=== PATIENT | male | born 1985 | race Caucasian/White ===

== ENCOUNTER 2018-07-08 14:39 | Observation (INO) | payer MEDICAID, SELFPAY ==
[2018-07-08] VITALS (11 sets, daily range): BP systolic 151–181; BP diastolic 84–97; PULSE 66–91; RESP 14–18; TEMP 36.7; O2SAT 96–99; BMI 36.4; BMI 36.1
--- NOTE | 2018-07-08 14:45 | EKG12_ITS ---
Test Reason : CP Blood Pressure : / mmHG Vent. Rate : 090 BPM Atrial Rate : 090 BPM P-R Int : 116 ms QRS Dur : 100 ms QT Int : 382 ms P-R-T Axes : 062 016 070 degrees QTc Int : 467 ms Normal sinus rhythm Possible Inbvi-Gmztbwyzo-Zaglm Possible old inferior wall NV Confirmed by DAVID ACOSTA ([id number]), assistant film editor SOILA MARTINES ([id number]) on 07/13/2018 2:14:49 PM Referred By: DARREL Confirmed By:DAVID ACOSTA
--- NOTE | 2018-07-08 15:00 | RAD_ITS ---
STUDY: X-RAY CHEST REASON FOR EXAM: Male, 33 years old. Chest pain TECHNIQUE: Single AP portable view of the chest. COMPARISON: None. FINDINGS: The lungs are clear and expanded. There is no demonstrated pleural abnormality. Normal size heart. Normal mediastinum and inga. Normal visualized pulmonary arteries. Normal visualized aortic arch and descending thoracic aorta. Normal visualized thoracic spine. Normal visualized ribs, clavicles, and shoulders. There is no demonstrated abnormality of the visualized soft tissue structures of the upper abdomen. RAD/Chest 1 View (Portable) IMPRESSION: Normal x-ray examination of the chest. Electronically Signed: Maxim Eden, at 16:03 EDT Tel , Service support ,
[2018-07-08 15:09] LABS: Absolute Lymphocyte Count 2.34 X10^3/ul (0.83-4.51); Absolute Neutrophil Count 7.9 X10^3/uL (2.0-7.7); Basophil# 0.06 X10^3/uL; Basophil% 0.5 % (0-1); Eosinophils% 0.9 % (0-5); Hematocrit 43.5 % (40-54); Hemoglobin 14.7 g/dl (13.0-16.5); Lymphocyte # 2.34 X10^3/ul (4.0); Mean Corp Hgb Conc 33.8 g/gl (32-36); Mean Corpuscular Hgb 28.2 pg (27.0-32.0); Mean Corpuscular Volume 83.3 fL (80-94); Mean Platelet Vol. 10.9 fl (6.2-12.0); Monocyte# 0.67 X10^3/uL; Neutrophil # 7.87 X10^3/uL (2.7-7.7); Neutrophil % 70.7 % (47-70); POSITIVE COUNT NO; POSITIVE DIFFERENTIAL NO; POSITIVE MORPHOLOGY NO; Platelet Count 238 K/mm3 (150-450); RBC Distribution Width CV 14.1 % (11.6-14.6); RBC Distribution Width SD 42.5 fl (35.1-43.9); Red Blood Count 5.22 M/mm3 (4.6-6.2); White Blood Count 11.1 K/mm3 (4.4-11.0)
[2018-07-08 15:26] LABS: Anion Gap 6 (5-15); BUN 16 mg/dL (7-18); BUN/Creat Ratio 15.2 RATIO (10-20); Calcium,Total 8.6 mg/dL (8.5-10.1); Chloride 107 mmol/L (98-107); Creatinine, Serum 1.05 mg/dL (0.70-1.30); EST Glomerular Filtration Rate 85 mL/min (>60); Est Glom Filt Rate - Afr Amer 103 mL/min (>60); Estimated Creatinine Clearance 107.78 ml/min; Glucose 157 mg/dL (74-106); Potassium 3.8 mmol/L (3.5-5.1); Sodium Level 137 mmol/L (136-145)
--- NOTE | 2018-07-08 15:31 | ED.DCSUM_ITS ---
- ER Visit Summary Date of Service: 07/08/18 Chief Complaint: Chest pain History of Present Illness: The patient is a 33 M presenting with chest pain. Patient states this started approximately 1 hour ago. He had 30 minutes of midsternal stabbing chest pain. He states it was 8 out of 10. Pain is currentl y resolved. He does not recall anything that made this better or worse. He had associated shortness of breath, diaphoresis, lightheadedness. He denies palpitations or heart racing. He is a previous smoker. He did travel to [facility] a few weeks ago. No other PE/DVT risk factors. Physical Examination: Vitals are stable. Patient is afebrile. Alert no acute distress. HEENT exam is unremarkable. Neck is supple. Lungs are clear and equal bilaterally. Heart is regular rate and rhythm. Abdomen is soft nontender nondistended. Extremities are unremarkable. Skin is warm and dry. No focal neurologic deficit. Remainder of exam is unremarkable. Emergency Department Course and Treatment: EKG sinus rhythm rate of 90 with delta wave. Chest x-ray shows no acute process. CBC, chemistries unremarkable. Troponin is negative. D-dimer negative. He was given aspirin on arrival. He is pain-free in the emergency department. Discussed with Dr. Kendrick who recommends admission for cardiac rule out. Discussed with Dr. Anthony for admission. Disposition: Observation Impression: Chest pain This note was generated with [email or web address] dictation software. It may contain incorrect words, spelling, and punctuation that were not noted in review of the chart prior to signing ED Disposition - Plan for ED Patient: Referrals: Care Physician,No Primary [Primary Care Provider] -
[2018-07-08 15:54] LABS: D-Dimer Quantitative (DVT/PE) < 0.27 FEU/ug/m (0.27-0.49)
--- NOTE | 2018-07-08 17:02 | PCM.HP.STD ---
<Femi Nicholson - Last Filed: 07/08/18 17:02> Problem List (1) Chest pain Status: Acute (2) WPW (Nfhze-Lfneqsbht-Netwa syndrome) Status: Chronic (3) Nicotine abuse Status: Chronic (4) Obesity Status: Chronic (5) Anxiety Status: Chronic History of Present Illness Date of Admission: 07/08/18 Chief Complaint: chest pain The patient is a 33 year old M with pmhx of anxiety, obesity, nicotine abuse, asthma, who presents to the ER with chest pain. This began about 1350 today. He was walking and talking, and suddenly had onset of severe midsternal, lower left, chest pain described as stabbing. He had associated pain described as heaviness in between his shoulder blades. He also broke out in a heavy sweat all over, and became LH. No nausea, no radiation in the neck or arm. He has no hx heart dz. He denies a fm hx of heart dz. He quit smoking 2 months ago, smoked off an on for 20 years. He does, however continue to smoke marijuana sometimes daily. Pain did last for about a half hour before spontaneously subsiding. Currently no pain. EKG shows WPW. [] Past Medical History Past Medical History (Chronic Problems): Chronic Problems WPW (Whajp-Isvreccgm-Inmpk syndrome) (Chronic) Nicotine abuse (Chronic) Obesity (Chronic) Anxiety (Chronic) Allergies morphine Allergy (Verified 07/08/18 14:42) Hives Home Medications: Ambulatory Orders Medication Instructions Recorded Albuterol Inhaler [Ventolin Hfa] 1 - 2 puff INHALATION Q4H PRN PRN 06/13/13 Fluticasone 0.05% [Flonase Nasal 2 spray NASAL DAILY 07/08/18 [place]] Psychiatric History: Anxiety Lives: Spouse/ Significant Other Smoking Status: Former smoker Tobacco Use: Non-smoker Alcohol: Occasional Drugs: Marijuana - *Family History Maternal History Items: Cancer - colon Paternal History Items: No pertinent history Review of Systems Constitutional: Denies: Chills, Fever, Weight Change HEENT: Denies: Head Aches, Sinus Congestion, Sinus Drainage Cardiovascular: Reports: Chest Pain, Light Headedness. Denies: Edema, Heaviness, Palpitations, Paroxysmal Noc. Dyspnea, Syncope Respiratory: Denies: Cough, Shortness of Breath, Shortness of breath at rest, Shortness of breath upon exertion, Sputum production, Wheezing Gastrointestinal: Denies: Abdominal Pain, Nausea, Vomiting Genitourinary: Denies: Dysuria Musculoskeletal: Denies: Joint Pain, Joint Tenderness Skin: Denies: Rash, Wounds Neurological: Denies: Numbness, Tingling, Focal weakness Psychiatric: Denies: Anxiety, Depression, Homicidal Ideations, Suicidal Ideations Hematologic/ Lymphatic: Denies: Easy Bruising, Easy Bleeding VTE Information - Inpt Only VTE Present on Admission: No VTE Mechan Device Prophylaxis: None VTE Pharm Prophylaxis ordered?: Yes Patient Problems: Active and Suspected Problems Chest pain (Acute) - Physical Exam General: Alert, Oriented x3, Cooperative HEENT: Atraumatic, PERRLA, EOMI, Normocephalic Neck: Supple, No JVD, Negative Carotid Bruits Lungs: Clear to auscultation, Normal air movement Cardiovascular: Regular rate, No murmurs Abdomen: Bowel Sounds Present, Soft, Non Tender Extremities: No edema, Capillary Refill Less than 3 Seconds Skin: No rashes, No breakdown Musculoskeletal: No Tenderness to Palpation of Joints or Extremities Neurological: Cranial nerves II-XII grossly intact Psych/Mental Status: Normal Affect, Appropriate, Alert and oriented to time, place, person, mood and affect Vital Signs Temp Pulse Resp BP Pulse Ox 98.1 F 81 17 159/88 H 97 07/08/18 14:40 07/08/18 15:53 07/08/18 15:53 07/08/18 15:53 07/08/18 14:40 Oxygen Flow Rate (L/min) 2 Oxygen Delivery Method Nasal Cannula Weight: 268 lb 15.423 oz Body Mass Index (BMI) 36.4 Laboratory Tests Past 24 Hrs 07/08/18 07/08/18 07/08/18 15:00 15:00 15:10 WBC 11.1 H RBC 5.22 Hgb 14.7 Hct 43.5 MCV 83.3 MCH 28.2 MCHC 33.8 RDW 14.1 RDW Differential 42.5 Plt Count 238 MPV 10.9 Immature Gran % (Auto) 0.900 Neut % (Auto) 70.7 H Lymph % (Auto) 21.0 [place] % (Auto) 6.0 Eos % (Auto) 0.9 Baso % (Auto) 0.5 Absolute Neuts (auto) 7.9 H Absolute Lymphs (auto) 2.34 Total Counted Not Reportable D-Dimer Quant (PE/DVT) < 0.27 L Sodium 137 Potassium 3.8 Chloride 107 Carbon Dioxide 24.0 Anion Gap 6 BUN 16 Creatinine 1.05 Estim Creat Clear Calc 107.78 Est GFR (MDRD) Af Amer 103 Est GFR (MDRD) Non-Af 85 BUN/Creatinine Ratio 15.2 Glucose 157 H Calcium 8.6 Troponin I < 0.015 Assessment/Plan All Active Problems Chest pain (Acute) 1. Chest pain - EKG shows WPW, delta waves preset. Trop neg. D Dimer neg. Mildly htn in ER. cycle enzymes, repeat EKG in AM. maintain on tele. Treadmill stress test in AM. Start aspirin, FLP in AM. 2. Anxiety - states he has hx, but is not on medication for this 3. Asthma - no acute exacerbation. CXR neg. Lungs clear. No increased O2 demand. prn albuterol 4. Obesity - dietary eval 5. Nicotine abuse - quit 2 months ago 6. Marijuana abuse - despite quitting nicotine, he still smokes marijuana sometimes daily. DVT ppx: lovenox This patient was seen by Femi Nicholson PA-C under the supervision of Dr. Anthony <Carrillo Anthony - Last Filed: 07/08/18 18:09> History of Present Illness The patient is a 33 year old M [] Past Medical History Allergies morphine Allergy (Verified 07/08/18 14:42) Hives - Physical Exam Vital Signs Temp Pulse Resp BP Pulse Ox 98.1 F 85 16 181/97 H 98 07/08/18 17:28 07/08/18 17:28 07/08/18 17:28 07/08/18 17:28 07/08/18 17:33 Oxygen Flow Rate (L/min) 2 Oxygen Delivery Method Room Air Weight: 266 lb Body Mass Index (BMI) 36.1 Intake and Output for Last 24 Hours 07/06/18 07/07/18 07/08/18 23:59 23:59 23:59 Intake Total 200 / 200 Balance 200 / 200 Laboratory Tests Past 24 Hrs 07/08/18 07/08/18 07/08/18 15:00 15:00 15:10 WBC 11.1 H RBC 5.22 Hgb 14.7 Hct 43.5 MCV 83.3 MCH 28.2 MCHC 33.8 RDW 14.1 RDW Differential 42.5 Plt Count 238 MPV 10.9 Immature Gran % (Auto) 0.900 Neut % (Auto) 70.7 H Lymph % (Auto) 21.0 [place] % (Auto) 6.0 Eos % (Auto) 0.9 Baso % (Auto) 0.5 Absolute Neuts (auto) 7.9 H Absolute Lymphs (auto) 2.34 Total Counted Not Reportable D-Dimer Quant (PE/DVT) < 0.27 L Sodium 137 Potassium 3.8 Chloride 107 Carbon Dioxide 24.0 Anion Gap 6 BUN 16 Creatinine 1.05 Estim Creat Clear Calc 107.78 Est GFR (MDRD) Af Amer 103 Est GFR (MDRD) Non-Af 85 BUN/Creatinine Ratio 15.2 Glucose 157 H Calcium 8.6 Troponin I < 0.015 Assessment/Plan Hospitalist note: I am seeing this patient in conjunction with Femi Nicholson. I independently seen and examined the patient. History and physical, laboratory data and imaging studies reviewed and I agree with above admission and work-up plan. Patient presented to the emergency room because of chest pain that was started after he had a discussion with somebody about a heated subject. He started having chest pain, midsternal chest pain, sharp pain, 8 out of 10 in severity, goes straight to his back, associated with shortness of breath, dizziness and sweating and without aggravating or relieving factors. At this time, he mentioned that the pain is much better and almost gone. Apart from smoking, he denies any other risk factors for CAD. He denied family history of premature CAD. In the emergency department, his blood pressure was elevated, other vital signs were stable. His routine blood work was remarkable for glucose of 157, otherwise normal. D-dimer was normal. EKG revealed normal sinus rhythm without evidence of acute ischemic changes, revealed questionable delta wave on lead V3 and V4 concerning for possible Lghan-Jqcddfqlx-Pglsn syndrome. Troponin is negative. Chest x-ray showed no acute findings. He is being admitted for chest pain for evaluation. - Physical Exam General: Alert, Oriented x3, Cooperative, No apparent distress. HEENT: Atraumatic, PERRLA, EOMI. Neck: Supple, No JVD, Negative Carotid Bruits, Trachea Midline, Thyroid Normal. Lungs: Clear to auscultation, Normal air movement, No rhonchi, No wheeze, No rales. Cardiovascular: Regular rate, Regular Rhythm, Normal S1, Normal S2, PMI Normal. Abdomen: Bowel Sounds Present, Soft, Non Tender, Non-Distended, No Hepato-splenomegaly. Extremities: No clubbing, No cyanosis, No edema Skin: No rashes, No breakdown Neurological: Neuro grossly intact Assessment and plan: #1 chest pain: On risk factors smoking, no family history of premature CAD. Patient mentioned that his blood pressure has been elevated recently. EKG reviewed as above. Troponin is negative. Chest x-ray without acute findings. Plan: Admit to PCU for observation, cardiac monitoring, serial cardiac enzymes, repeat EKG tomorrow morning, treadmill stress test tomorrow morning if cardiac enzymes are negative, fasting lipid profile. #2 elevated blood pressure, without history of hypertension but patient stated that his pressure has been high lately. Plan to monitor, start antihypertensive medications tomorrow if blood pressure remains above 160 systolic, IV hydralazine PRN. #3 questionable Ppczs-Vdrdgvlyv-Rabmh syndrome: EKG reviewed, revealed delta wave in lead V3, questionable on lead V4. Plan for cardiac consult as above. #4 hyperglycemia: Blood sugar is 157, no history of diabetes. Plan for Accu-Cheks, will check A1c. This note was generated with [employer] dictation software. It may contain incorrect words, spelling, and punctuation that were not noted in checking the note before signing. Code Visit OBSV E&M: 64262 Initial observation care L3
[2018-07-08] MEDS: Aspirin 325 MG Tablet PO (17:04)
--- NOTE | 2018-07-08 17:06 | HP.PCM_ITS ---
<Femi Nicholson - Last Filed: 07/08/18 17:02> Problem List (1) Chest pain Status: Acute (2) WPW (Oahgp-Tddkknrcd-Rpfgd syndrome) Status: Chronic (3) Nicotine abuse Status: Chronic (4) Obesity Status: Chronic (5) Anxiety Status: Chronic History of Present Illness Date of Admission: 07/08/18 Chief Complaint: chest pain The patient is a 33 year old M with pmhx of anxiety, obesity, nicotine abuse, asthma, who presents to the ER with chest pain. This began about 1350 today. He was walking and talking, and suddenly had onset of severe midsternal, lower left, chest pain described as stabbing. He had associated pain described as heaviness in between his shoulder blades. He also broke out in a heavy sweat all over, and became LH. No nausea, no radiation in the neck or arm. He has no hx heart dz. He denies a fm hx of heart dz. He quit smoking 2 months ago, smoked off an on for 20 years. He does, however continue to smoke marijuana sometimes daily. Pain did last for about a half hour before spontaneously subsiding. Currently no pain. EKG shows WPW. [] Past Medical History Past Medical History (Chronic Problems): Chronic Problems WPW (Inhvk-Jvqqvdaei-Wkcdw syndrome) (Chronic) Nicotine abuse (Chronic) Obesity (Chronic) Anxiety (Chronic) Allergies morphine Allergy (Verified 07/08/18 14:42) Hives Home Medications: Ambulatory Orders Medication Instructions Recorded Albuterol Inhaler [Ventolin Hfa] 1 - 2 puff INHALATION Q4H PRN PRN 06/13/13 Fluticasone 0.05% [Flonase Nasal 2 spray NASAL DAILY 07/08/18 [place]] Psychiatric History: Anxiety Lives: Spouse/ Significant Other Smoking Status: Former smoker Tobacco Use: Non-smoker Alcohol: Occasional Drugs: Marijuana - *Family History Maternal History Items: Cancer - colon Paternal History Items: No pertinent history Review of Systems Constitutional: Denies: Chills, Fever, Weight Change HEENT: Denies: Head Aches, Sinus Congestion, Sinus Drainage Cardiovascular: Reports: Chest Pain, Light Headedness. Denies: Edema, Heaviness, Palpitations, Paroxysmal Noc. Dyspnea, Syncope Respiratory: Denies: Cough, Shortness of Breath, Shortness of breath at rest, Shortness of breath upon exertion, Sputum production, Wheezing Gastrointestinal: Denies: Abdominal Pain, Nausea, Vomiting Genitourinary: Denies: Dysuria Musculoskeletal: Denies: Joint Pain, Joint Tenderness Skin: Denies: Rash, Wounds Neurological: Denies: Numbness, Tingling, Focal weakness Psychiatric: Denies: Anxiety, Depression, Homicidal Ideations, Suicidal Ideations Hematologic/ Lymphatic: Denies: Easy Bruising, Easy Bleeding VTE Information - Inpt Only VTE Present on Admission: No VTE Mechan Device Prophylaxis: None VTE Pharm Prophylaxis ordered?: Yes Patient Problems: Active and Suspected Problems Chest pain (Acute) - Physical Exam General: Alert, Oriented x3, Cooperative HEENT: Atraumatic, PERRLA, EOMI, Normocephalic Neck: Supple, No JVD, Negative Carotid Bruits Lungs: Clear to auscultation, Normal air movement Cardiovascular: Regular rate, No murmurs Abdomen: Bowel Sounds Present, Soft, Non Tender Extremities: No edema, Capillary Refill Less than 3 Seconds Skin: No rashes, No breakdown Musculoskeletal: No Tenderness to Palpation of Joints or Extremities Neurological: Cranial nerves II-XII grossly intact Psych/Mental Status: Normal Affect, Appropriate, Alert and oriented to time, place, person, mood and affect Vital Signs Temp Pulse Resp BP Pulse Ox 98.1 F 81 17 159/88 H 97 07/08/18 14:40 07/08/18 15:53 07/08/18 15:53 07/08/18 15:53 07/08/18 14:40 Oxygen Flow Rate (L/min) 2 Oxygen Delivery Method Nasal Cannula Weight: 268 lb 15.423 oz Body Mass Index (BMI) 36.4 Laboratory Tests Past 24 Hrs 07/08/18 07/08/18 07/08/18 15:00 15:00 15:10 WBC 11.1 H RBC 5.22 Hgb 14.7 Hct 43.5 MCV 83.3 MCH 28.2 MCHC 33.8 RDW 14.1 RDW Differential 42.5 Plt Count 238 MPV 10.9 Immature Gran % (Auto) 0.900 Neut % (Auto) 70.7 H Lymph % (Auto) 21.0 [place] % (Auto) 6.0 Eos % (Auto) 0.9 Baso % (Auto) 0.5 Absolute Neuts (auto) 7.9 H Absolute Lymphs (auto) 2.34 Total Counted Not Reportable D-Dimer Quant (PE/DVT) < 0.27 L Sodium 137 Potassium 3.8 Chloride 107 Carbon Dioxide 24.0 Anion Gap 6 BUN 16 Creatinine 1.05 Estim Creat Clear Calc 107.78 Est GFR (MDRD) Af Amer 103 Est GFR (MDRD) Non-Af 85 BUN/Creatinine Ratio 15.2 Glucose 157 H Calcium 8.6 Troponin I < 0.015 Assessment/Plan All Active Problems Chest pain (Acute) 1. Chest pain - EKG shows WPW, delta waves preset. Trop neg. D Dimer neg. Mildly htn in ER. cycle enzymes, repeat EKG in AM. maintain on tele. Treadmill stress test in AM. Start aspirin, FLP in AM. 2. Anxiety - states he has hx, but is not on medication for this 3. Asthma - no acute exacerbation. CXR neg. Lungs clear. No increased O2 demand. prn albuterol 4. Obesity - dietary eval 5. Nicotine abuse - quit 2 months ago 6. Marijuana abuse - despite quitting nicotine, he still smokes marijuana sometimes daily. DVT ppx: lovenox This patient was seen by Femi Nicholson PA-C under the supervision of Dr. Anthony <Carrillo Anthony - Last Filed: 07/08/18 18:09> History of Present Illness The patient is a 33 year old M [] Past Medical History Allergies morphine Allergy (Verified 07/08/18 14:42) Hives - Physical Exam Vital Signs Temp Pulse Resp BP Pulse Ox 98.1 F 85 16 181/97 H 98 07/08/18 17:28 07/08/18 17:28 07/08/18 17:28 07/08/18 17:28 07/08/18 17:33 Oxygen Flow Rate (L/min) 2 Oxygen Delivery Method Room Air Weight: 266 lb Body Mass Index (BMI) 36.1 Intake and Output for Last 24 Hours 07/06/18 07/07/18 07/08/18 23:59 23:59 23:59 Intake Total 200 / 200 Balance 200 / 200 Laboratory Tests Past 24 Hrs 07/08/18 07/08/18 07/08/18 15:00 15:00 15:10 WBC 11.1 H RBC 5.22 Hgb 14.7 Hct 43.5 MCV 83.3 MCH 28.2 MCHC 33.8 RDW 14.1 RDW Differential 42.5 Plt Count 238 MPV 10.9 Immature Gran % (Auto) 0.900 Neut % (Auto) 70.7 H Lymph % (Auto) 21.0 [place] % (Auto) 6.0 Eos % (Auto) 0.9 Baso % (Auto) 0.5 Absolute Neuts (auto) 7.9 H Absolute Lymphs (auto) 2.34 Total Counted Not Reportable D-Dimer Quant (PE/DVT) < 0.27 L Sodium 137 Potassium 3.8 Chloride 107 Carbon Dioxide 24.0 Anion Gap 6 BUN 16 Creatinine 1.05 Estim Creat Clear Calc 107.78 Est GFR (MDRD) Af Amer 103 Est GFR (MDRD) Non-Af 85 BUN/Creatinine Ratio 15.2 Glucose 157 H Calcium 8.6 Troponin I < 0.015 Assessment/Plan Hospitalist note: I am seeing this patient in conjunction with Femi Nicholson. I independently seen and examined the patient. History and physical, laboratory data and imaging studies reviewed and I agree with above admission and work-up plan. Patient presented to the emergency room because of chest pain that was started after he had a discussion with somebody about a heated subject. He started having chest pain, midsternal chest pain, sharp pain, 8 out of 10 in severity, goes straight to his back, associated with shortness of breath, dizziness and sweating and without aggravating or relieving factors. At this time, he mentioned that the pain is much better and almost gone. Apart from smoking, he denies any other risk factors for CAD. He denied family history of premature CAD. In the emergency department, his blood pressure was elevated, other vital signs were stable. His routine blood work was remarkable for glucose of 157, otherwise normal. D-dimer was normal. EKG revealed normal sinus rhythm without evidence of acute ischemic changes, revealed questionable delta wave on lead V3 and V4 concerning for possible Grwll-Dekadkcre-Fcxut syndrome. Troponin is negative. Chest x-ray showed no acute findings. He is being admitted for chest pain for evaluation. - Physical Exam General: Alert, Oriented x3, Cooperative, No apparent distress. HEENT: Atraumatic, PERRLA, EOMI. Neck: Supple, No JVD, Negative Carotid Bruits, Trachea Midline, Thyroid Normal. Lungs: Clear to auscultation, Normal air movement, No rhonchi, No wheeze, No rales. Cardiovascular: Regular rate, Regular Rhythm, Normal S1, Normal S2, PMI Normal. Abdomen: Bowel Sounds Present, Soft, Non Tender, Non-Distended, No Hepato- splenomegaly. Extremities: No clubbing, No cyanosis, No edema Skin: No rashes, No breakdown Neurological: Neuro grossly intact Assessment and plan: #1 chest pain: On risk factors smoking, no family history of premature CAD. Patient mentioned that his blood pressure has been elevated recently. EKG reviewed as above. Troponin is negative. Chest x-ray without acute findings. Plan: Admit to PCU for observation, cardiac monitoring, serial cardiac enzymes, repeat EKG tomorrow morning, treadmill stress test tomorrow morning if cardiac enzymes are negative, fasting lipid profile. #2 elevated blood pressure, without history of hypertension but patient stated that his pressure has been high lately. Plan to monitor, start antihypertensive medications tomorrow if blood pressure remains above 160 systolic, IV hydralazine PRN. #3 questionable Vlkma-Uolozcxqg-Vqwzu syndrome: EKG reviewed, revealed delta wav e in lead V3, questionable on lead V4. Plan for cardiac consult as above. #4 hyperglycemia: Blood sugar is 157, no history of diabetes. Plan for Accu- Cheks, will check A1c. This note was generated with [employer] dictation software. It may contain incorrect words, spelling, and punctuation that were not noted in checking the note before signing. Code Visit OBSV E&M: 03272 Initial observation care L3
[2018-07-08] MEDS: 0.9% Normal Saline 1,000 ML 75 ML IV (18:39)
[2018-07-08 19:17] LABS: Hemoglobin A1c 5.7 % (4.2-6.3)
[2018-07-08 19:22] LABS: Thyroid Stim Hormone (TSH) 1.82 uIU/mL (0.358-3.74)
[2018-07-09] VITALS (9 sets, daily range): BP systolic 105–157; BP diastolic 58–92; PULSE 58–85; RESP 16–18; TEMP 36.2–37.2; O2SAT 96–98
[2018-07-09 05:45] LABS: Anion Gap 6 (5-15); BUN 17 mg/dL (7-18); BUN/Creat Ratio 19.7 RATIO (10-20); Calcium,Total 8.4 mg/dL (8.5-10.1); Chloride 109 mmol/L (98-107); Cholesterol 158 mg/dL (200); Creatinine, Serum 0.86 mg/dL (0.70-1.30); EST Glomerular Filtration Rate 107 mL/min (>60); Est Glom Filt Rate - Afr Amer 129 mL/min (>60); Estimated Creatinine Clearance 131.59 ml/min; Glucose 103 mg/dL (74-106); High Density Lipoprotein 37 mg/dL; Potassium 4.3 mmol/L (3.5-5.1); Sodium Level 141 mmol/L (136-145); Triglycerides 197 mg/dL; Very Low Density Lipoprotein 39 mg/dL (5-40)
[2018-07-09 05:46] LABS: Prothrombin Time (Protime)PT. 13.1 SECONDS (11.7-14.9)
[2018-07-09 05:47] LABS: Hematocrit 43.2 % (40-54); Hemoglobin 14.5 g/dl (13.0-16.5); Mean Corp Hgb Conc 33.6 g/gl (32-36); Mean Corpuscular Hgb 28.3 pg (27.0-32.0); Mean Corpuscular Volume 84.2 fL (80-94); Mean Platelet Vol. 11.4 fl (6.2-12.0); Partial Thromboplast Time 28.1 Seconds (24.1-36.2); Platelet Count 231 K/mm3 (150-450); RBC Distribution Width CV 14.2 % (11.6-14.6); RBC Distribution Width SD 43.3 fl (35.1-43.9); Red Blood Count 5.13 M/mm3 (4.6-6.2); White Blood Count 9.7 K/mm3 (4.4-11.0)
--- NOTE | 2018-07-09 05:55 | EKG12_ITS ---
Test Reason : MORNING EKG Blood Pressure : / mmHG Vent. Rate : 058 BPM Atrial Rate : 058 BPM P-R Int : 122 ms QRS Dur : 114 ms QT Int : 430 ms P-R-T Axes : 068 016 058 degrees QTc Int : 422 ms Sinus bradycardia Eahqa-Ozypqoupq-Ykgxt Abnormal ECG When compared with ECG of 08-JUL-2018 17:30, MANUAL COMPARISON REQUIRED, DATA IS UNCONFIRMED Confirmed by ANGEL SANTOS ([id number]), industrial editor SOILA MARTINES ([id number]) on 07/13/2018 2:23:27 PM Referred By: RAJAT Confirmed By:PAT SANTOS
[2018-07-09 05:59] LABS: Scan Indicated on CBC? Y/N NO
--- NOTE | 2018-07-09 09:40 | STRESSREP ---
Stress Test Report Date: July 09, 2018 Procedure: Exercise tolerance test/imaging study Indications: Chest pain Consent: Per the patient Procedure: The patient exercised on a Gavin protocol for 9 minutes achieving a peak heart rate of 169 bpm (91 % predicted maximal heart rate) with a peak blood pressure 172/80 mmHg and a peak MET capacity of 10.1 METs. The baseline ECG demonstrated normal sinus rhythm no significant ST-T changes. The peak exercise ECG demonstrated sinus tachycardia with 1/2 to [address] depression in the lateral leads. There were PVCs with exercise sometimes in couplets. The functional capacity was considered average for age. There was [no complaint of chest discomfort during exercise or recovery]. The examination was discontinued secondary to leg discomfort. Impression: 1. Technically adequate (percent predicted maximal heart rate greater than 85%) exercise tolerance test 2. Peak exercise ECG showed no definite evidence of significant ischemia 3. Test was negative for exercise induced chest pain 4. Nuclear images pending Myocardial perfusion imaging study: Technique: The patient was injected with 11.9 mCi of technetium 99m Cardiolite and subsequently rest SPECT Cardiolite nuclear imaging was obtained in the horizontal long, vertical long, and short axis views. The patient exercised on a Gavin protocol for 9 minutes achieving a peak heart rate of 169 bpm (91 % predicted maximal heart rate) with a peak blood pressure 172/80 mmHg and a peak MET capacity of 10.1 METs. The patient was injected with 34.4 mCi of technetium 99m Cardiolite and subsequently stress SPECT Cardiolite nuclear imaging was obtained in the horizontal long, vertical long, and short axis views. A gated Cardiolite study at peak stress was obtained. Interpretation: Rest and stress SPECT Cardiolite nuclear imaging status post realignment, normalization, and attenuation correction, demonstrates normal myocardial radioisotope uptake at rest. Mild decrease in the radioisotope uptake in the apex and inferoapical region on the stress images. Gated images reveal no significant regional wall motion abnormalities. The reported LVEF is greater than 70%. Impression: 1. Rest and stress SPECT Cardiolite nuclear imaging demonstrate mild apical ischemia. 2. The gated Cardiolite study reports an LVEF of greater than 70 %. This note was generated with [employer] software. It may contain incorrect words, spelling, and punctuation that were not noted in checking the note before signing.
--- NOTE | 2018-07-09 09:46 | PCM.CONS.C ---
<Fabio Nam - Last Filed: 07/09/18 09:46> Problem List (1) Chest pain Status: Acute (2) WPW (Kmqma-Mefghfqhx-Tzrjc syndrome) Status: Chronic (3) Nicotine abuse Status: Chronic (4) Obesity Status: Chronic (5) Anxiety Status: Chronic Reason for Consult Date of Consultation: 07/09/18 History of Present Illness: The patient is a 33 year old M who presented to [facility] emergency department on 07/08/2018 for chest pain associated with diaphoresis, shortness of breath, and dizziness. He has a previous medical history of hypertension, obesity, significant anxiety, and previous tobacco abuse. Patient states that he was in a high anxiety situation and pacing back and forth and noticed symptoms. He is states previous episodes approximately one half and 2 years ago that dissipated without evaluation or intervention. In the emergency department, his EKG showed controlled rate with delta waves consistent with Guevara Parkinson White. His troponin and d-dimer were negative. He was admitted to hospital for further evaluation. Cardiology was consulted for further recommendation. Past Medical History Allergies/Adverse Reactions: Allergies morphine Allergy (Verified 07/08/18 14:42) Hives Home Medications: Ambulatory Orders Medication Instructions Recorded Albuterol Inhaler [Ventolin Hfa] 1 - 2 puff INHALATION Q4H PRN PRN 06/13/13 Fluticasone 0.05% [Flonase Nasal 2 spray NASAL DAILY 07/08/18 [place]] Past Medical History (Chronic Problems): Chronic Problems WPW (Qrmkf-Sqmkadeel-Olufa syndrome) (Chronic) Nicotine abuse (Chronic) Obesity (Chronic) Anxiety (Chronic) Surgical History: - - Hernia Surgery Psychiatric History: Anxiety - *Family History Maternal Family History: Family History (Last Updated 07/09/18 @ 09:51 by BUCK Dowell) Grandmother Diabetes History Items: Cancer - colon Paternal Family History: Family History (Last Updated 07/09/18 @ 09:51 by BUCK Dowell) Grandmother Diabetes History Items: No pertinent history Lives: Spouse/ Significant Other Smoking Status: Former smoker Tobacco Use: Non-smoker Alcohol: Occasional Drugs: Marijuana Review of Systems - Review of Systems General: Denies: Fatigue HEENT: Denies: Vision Change, Blurred Vision Cardiovascular: Denies: Chest Discomfort, Chest Pressure, Chest Tightness, Chest Heaviness, Shortness of Breath, PND, Peripheral Edema, Palpitations, Lightheadedness, Dizziness, Near Syncope, Syncope Respiratory: Denies: Cough Muscoloskeletal: Denies: Myalgias Neurological: Denies: Dizziness, Confusion, Weakness Psychiatric: Reports: Anxiety Objective: Vital Signs Temp Pulse Resp BP Pulse Ox 97.9 F 65 18 135/86 H 96 07/09/18 06:27 07/09/18 06:27 07/09/18 06:27 07/09/18 06:27 07/09/18 06:27 Oxygen Flow Rate (L/min) 2 Oxygen Delivery Method Room Air Weight: 266 lb Body Mass Index (BMI) 36.1 Intake and Output for Last 24 Hours 07/07/18 07/08/18 07/09/18 23:59 23:59 23:59 Intake Total 866 / 866 460 / 460 Balance 866 / 866 460 / 460 General: Healthy Appearing, Awake, Alert, Oriented x 3 HEENT: Atraumatic Oral: Moist Mucosa Neck: No JVD Lungs: Clear to auscultation Cardiovascular: Regular Rhythm, No Murmurs, No Rubs, No Gallops Vascular: No Carotid Bruits Abdomen: Soft Extremities: No Cyanosis, No Clubbing, No edema, Normal Capillary Refill Skin: No Rashes Neurological: No Focal Motor or Sensory Deficit Psych/Mental Status: Appropriate, Normal Affect 07/08/18 15:00: WBC 11.1 H, RBC 5.22, Hgb 14.7, Hct 43.5, MCV 83.3, MCH 28.2, MCHC 33.8, RDW 14.1, RDW Differential 42.5, Plt Count 238, MPV 10.9, Immature Gran % (Auto) 0.900, Neut % (Auto) 70.7 H, Lymph % (Auto) 21.0, Labette % (Auto) 6.0, Eos % (Auto) 0.9, Baso % (Auto) 0.5, Absolute Neuts (auto) 7.9 H, Total Counted Not Reportable 07/08/18 15:00: Sodium 137, Potassium 3.8, Chloride 107, Carbon Dioxide 24.0, Anion Gap 6, BUN 16, Creatinine 1.05, Est GFR (MDRD) Af Amer 103, Est GFR (MDRD) Non-Af 85, BUN/Creatinine Ratio 15.2, Glucose 157 H, Calcium 8.6, Troponin I < 0.015 07/08/18 15:10: D-Dimer Quant (PE/DVT) < 0.27 L 07/08/18 18:42: Troponin I < 0.015 07/08/18 18:42: Hemoglobin A1c 5.7 07/08/18 20:51: Troponin I < 0.015 07/09/18 05:00: WBC 9.7, RBC 5.13, Hgb 14.5, Hct 43.2, MCV 84.2, MCH 28.3, MCHC 33.6, RDW 14.2, RDW Differential 43.3, Plt Count 231, MPV 11.4 07/09/18 05:00: Sodium 141, Potassium 4.3, Chloride 109 H, Carbon Dioxide 26.0, Anion Gap 6, BUN 17, Creatinine 0.86, Est GFR (MDRD) Af Amer 129, Est GFR (MDRD) Non-Af 107, BUN/Creatinine Ratio 19.7, Glucose 103, Calcium 8.4 L, Triglycerides 197, Cholesterol 158, LDL Cholesterol 82, VLDL Cholesterol 39, HDL Cholesterol 37 L 07/09/18 05:00: PT 13.1, INR 1.0, APTT 28.1 Rhythm: EKG: ECHO: Stress Test: Cardiac Cath: PCI: CT Surgery: Holter monitor: EPS: PPM: CXR: Chest CT Scan: Assessment/Plan 1. Chest pain Patient's chest pain appears to have atypical features. He denies any previous family history of coronary artery disease. His cardiac enzyme has been negative x3. His nuclear stress test results are currently pending. He denied any shortness of breath or chest pain during his stress test. Based on results of his stress test, further recommendation will be made. 2. Ewfzw-Wkdndgdfk-Uactv Patient's EKG showed delta waves consistent with Wyiiu-Fcsjlvxfh-Azubo. His EKG in the morning showed sinus bradycardia. His heart rate is well controlled. He is not on any current rate limiting medications. At this time, we will continue to monitor. 3. Anxiety Patient expresses multiple high anxiety situations that have resulted in similar chest pain features. Patient results of his cardiac work-up he may require further evaluation with primary care physician regards to anxiety evaluation and treatment. 4. Obesity Patient is very eager to modify his lifestyle by increasing his exercise and improving his diet. We will continue to promote and support healthy weight loss. 5. Tobacco abuse Patient states that he recently quit smoking 2 months ago. He is reminded the importance of this in regards to cardiovascular health and pulmonary health. We will continue to promote and support smoking cessation. <Hank Kendrick - Last Filed: 07/09/18 10:41> Problem List (1) Chest pain Status: Acute (2) WPW (Dniye-Qxlllmcoj-Nnwab syndrome) Status: Chronic (3) Nicotine abuse Status: Chronic Reason for Consult Reason for Consultation: Chest pain, possible WPW, abnormal stress test History of Present Illness: Patient seen and examined, and agree with above. Following attending addendum: The patient is a 33 year old M former smoker who quit about 2 months ago after [id number] smoking history, history of asthma, history of anxiety, no history of coronary artery disease or WPW. Approximately 2 years ago, the patient developed substernal chest pain as well as some shortness of breath but did not seek medical attention at that time. patient has had a difficult time maintaining optimal weight, and eats very poorly. He has a sedentary job as well. Recently after seeing a friend of his who is markedly overweight he quit smoking about 2 months ago. He is fairly active, without any exertional symptoms at home. Yesterday afternoon he had a significant confrontation which caused him to become very anxious, and developed midsternal substernal chest pain which radiated to the middle of his back between his shoulder blades. He also had associated diaphoresis, shortness of breath. When his symptoms did not improve he came to [facility] ER. At that time an EKG was performed which showed normal sinus rhythm with possible WPW and delta wave as well as possible old inferior wall myocardial infarction. His symptoms abated, and he was admitted to rule out for myocardial infarction. His troponins were negative x3, and he underwent a treadmill/MPI this morning. Patient had no exertional symptoms during the treadmill however he did have mild inferior ischemic changes on his nuclear imaging. Echocardiogram is pending. On further history he denies any family history of premature coronary disease, sudden cardiac , arrhythmias, or WPW. I reviewed his EKG which showed normal sinus rhythm, delta wave in the anterior leads, possible old inferior wall myocardial infarction, no acute changes. A previous EKG several years ago showed normal sinus rhythm at a faster heart rate and no obvious delta wave. [] Past Medical History - *Family History Maternal Family History: Family History (Last Updated 07/09/18 @ 09:51 by BUCK Dowell) Grandmother Diabetes Paternal Family History: Family History (Last Updated 07/09/18 @ 09:51 by BUCK Dowell) Grandmother Diabetes Review of Systems - Review of Systems General: Denies: Fever, Night Sweats, Fatigue Cardiovascular: Reports: Chest Discomfort, Chest Discomfort at Rest, Chest Pressure, Shortness of Breath, Shortness of Breath at Rest. Denies: Orthopnea, PND, Peripheral Edema, Palpitations, Lightheadedness, Dizziness, Near Syncope, Syncope Respiratory: Denies: Cough, Sputum Production, Hemoptysis Gastrointestinal: Denies: Hematemesis, Hematochezia, Melena Genitourinary: Denies: Dysuria, Hematuria Skin: Denies: Rash Subjectve: Patient laying in bed, no acute distress. Objective: Vital Signs Temp Pulse Resp BP Pulse Ox 97.9 F 65 18 135/86 H 96 07/09/18 06:27 07/09/18 06:27 07/09/18 06:27 07/09/18 06:27 07/09/18 06:27 Oxygen Flow Rate (L/min) 2 Oxygen Delivery Method Room Air Weight: 266 lb Body Mass Index (BMI) 36.1 Intake and Output for Last 24 Hours 07/07/18 07/08/18 07/09/18 23:59 23:59 23:59 Intake Total 866 / 866 460 / 460 Balance 866 / 866 460 / 460 General: Awake, Alert, Oriented x 3 HEENT: PERRL, EOMI, Sclera Non Icteric Neck: Supple, Good ROM, No Lymph Node Enlargement Lungs: Clear to auscultation Cardiovascular: Regular Rhythm, Normal S1, Normal S2, No Murmurs, No Rubs, No Gallops Vascular: No Carotid Bruits, Normal Femoral Pulses, Normal Radial Pulses, Normal Dorsalis Pedal Pulse, Normal Posterior Tibial Pulses Abdomen: Bowel Sounds Present, Soft, Non Tender, No HSM, No Organomegaly Extremities: No Cyanosis, No Clubbing, No edema Neurological: No Focal Motor or Sensory Deficit 07/08/18 15:00: WBC 11.1 H, RBC 5.22, Hgb 14.7, Hct 43.5, MCV 83.3, MCH 28.2, MCHC 33.8, RDW 14.1, RDW Differential 42.5, Plt Count 238, MPV 10.9, Immature Gran % (Auto) 0.900, Neut % (Auto) 70.7 H, Lymph % (Auto) 21.0, Labette % (Auto) 6.0, Eos % (Auto) 0.9, Baso % (Auto) 0.5, Absolute Neuts (auto) 7.9 H, Total Counted Not Reportable 07/08/18 15:00: Sodium 137, Potassium 3.8, Chloride 107, Carbon Dioxide 24.0, Anion Gap 6, BUN 16, Creatinine 1.05, Est GFR (MDRD) Af Amer 103, Est GFR (MDRD) Non-Af 85, BUN/Creatinine Ratio 15.2, Glucose 157 H, Calcium 8.6, Troponin I < 0.015 07/08/18 15:10: D-Dimer Quant (PE/DVT) < 0.27 L 07/08/18 18:42: Troponin I < 0.015 07/08/18 18:42: Hemoglobin A1c 5.7 07/08/18 20:51: Troponin I < 0.015 07/09/18 05:00: WBC 9.7, RBC 5.13, Hgb 14.5, Hct 43.2, MCV 84.2, MCH 28.3, MCHC 33.6, RDW 14.2, RDW Differential 43.3, Plt Count 231, MPV 11.4 07/09/18 05:00: Sodium 141, Potassium 4.3, Chloride 109 H, Carbon Dioxide 26.0, Anion Gap 6, BUN 17, Creatinine 0.86, Est GFR (MDRD) Af Amer 129, Est GFR (MDRD) Non-Af 107, BUN/Creatinine Ratio 19.7, Glucose 103, Calcium 8.4 L, Triglycerides 197, Cholesterol 158, LDL Cholesterol 82, VLDL Cholesterol 39, HDL Cholesterol 37 L 07/09/18 05:00: PT 13.1, INR 1.0, APTT 28.1 Rhythm: EKG: ECHO: Pending Stress Test: Abnormal for inferior ischemia. Cardiac Cath: PCI: CT Surgery: Holter monitor: EPS: PPM: CXR: Chest CT Scan: Assessment/Plan Attending addendum: Patient seen and examined agree with above. 1. Coronary artery disease: Given the patient's symptoms, risk factors, abnormal EKG, and abnormal treadmill/MPI, I recommended the patient undergo a diagnostic coronary angiogram to confirm/deny the presence of significant coronary atherosclerosis. Patient is on baby aspirin at this time, and we will add Plavix 300 mg x 1 now followed by 75 mg a day in anticipation of possible PCI. Patient has no overt coronary artery disease, I would have a low threshold to refer him to an account resolution specialist to evaluate for possible ablation procedure given his WPW. I would not recommend beta-blockers, calcium channel blockers, or digoxin or other AV юлия rate limiting medications until this WW has been adjudicated properly. Patient may have amiodarone should the need arise if he has rapid atrial fibrillation or atrial flutter. 2. Hyperlipidemia: Patient's LDL is 82 and HDL is 37. Will consider statin based medications after his catheterization tomorrow. 3. WPW: The patient appears to have classic delta wave on his EKG which may be rate dependent. Would recommend EP evaluation to determine if he is a candidate for ablation procedure going forward. It is also possible patient may had an arrhythmia that may have triggered his symptoms. He may benefit from a 30-day event monitor prior to discharge. 4. Thank you very much for the opportunity to put dissipate in the cardiac care of your patient. Code Visit Inpatient E&M: 87564 Init Hosp L2
--- NOTE | 2018-07-09 09:51 | CON.PCM_ITS ---
<Fabio Nam - Last Filed: 07/09/18 09:46> Problem List (1) Chest pain Status: Acute (2) WPW (Dogxt-Mazszxnay-Sjqpe syndrome) Status: Chronic (3) Nicotine abuse Status: Chronic (4) Obesity Status: Chronic (5) Anxiety Status: Chronic Reason for Consult Date of Consultation: 07/09/18 History of Present Illness: The patient is a 33 year old M who presented to [facility] emergency department on 07/08/2018 for chest pain associated with diaphoresis, shortness of breath, and dizziness. He has a previous medical history of hypertension, obesity, significant anxiety, and previous tobacco abuse. Patient states that he was in a high anxiety situation and pacing back and forth and noticed symptoms. He is states previous episodes approximately one half and 2 years ago that dissipated without evaluation or intervention. In the emergency department, his EKG showed controlled rate with delta waves consistent with Guevara Parkinson White. His troponin and d-dimer were negative. He was admitted to hospital for further evaluation. Cardiology was consulted for further recommendation. Past Medical History Allergies/Adverse Reactions: Allergies morphine Allergy (Verified 07/08/18 14:42) Hives Home Medications: Ambulatory Orders Medication Instructions Recorded Albuterol Inhaler [Ventolin Hfa] 1 - 2 puff INHALATION Q4H PRN PRN 06/13/13 Fluticasone 0.05% [Flonase Nasal 2 spray NASAL DAILY 07/08/18 [place]] Past Medical History (Chronic Problems): Chronic Problems WPW (Hrvfb-Kfiodzeod-Muwqt syndrome) (Chronic) Nicotine abuse (Chronic) Obesity (Chronic) Anxiety (Chronic) Surgical History: - - Hernia Surgery Psychiatric History: Anxiety - *Family History Maternal Family History: Family History (Last Updated 07/09/18 @ 09:51 by BUCK Dowell) Grandmother Diabetes History Items: Cancer - colon Paternal Family History: Family History (Last Updated 07/09/18 @ 09:51 by BUCK Dowell) Grandmother Diabetes History Items: No pertinent history Lives: Spouse/ Significant Other Smoking Status: Former smoker Tobacco Use: Non-smoker Alcohol: Occasional Drugs: Marijuana Review of Systems - Review of Systems General: Denies: Fatigue HEENT: Denies: Vision Change, Blurred Vision Cardiovascular: Denies: Chest Discomfort, Chest Pressure, Chest Tightness, Chest Heaviness, Shortness of Breath, PND, Peripheral Edema, Palpitations, Lightheadedness, Dizziness, Near Syncope, Syncope Respiratory: Denies: Cough Muscoloskeletal: Denies: Myalgias Neurological: Denies: Dizziness, Confusion, Weakness Psychiatric: Reports: Anxiety Objective: Vital Signs Temp Pulse Resp BP Pulse Ox 97.9 F 65 18 135/86 H 96 07/09/18 06:27 07/09/18 06:27 07/09/18 06:27 07/09/18 06:27 07/09/18 06:27 Oxygen Flow Rate (L/min) 2 Oxygen Delivery Method Room Air Weight: 266 lb Body Mass Index (BMI) 36.1 Intake and Output for Last 24 Hours 07/07/18 07/08/18 07/09/18 23:59 23:59 23:59 Intake Total 866 / 866 460 / 460 Balance 866 / 866 460 / 460 General: Healthy Appearing, Awake, Alert, Oriented x 3 HEENT: Atraumatic Oral: Moist Mucosa Neck: No JVD Lungs: Clear to auscultation Cardiovascular: Regular Rhythm, No Murmurs, No Rubs, No Gallops Vascular: No Carotid Bruits Abdomen: Soft Extremities: No Cyanosis, No Clubbing, No edema, Normal Capillary Refill Skin: No Rashes Neurological: No Focal Motor or Sensory Deficit Psych/Mental Status: Appropriate, Normal Affect 07/08/18 15:00: WBC 11.1 H, RBC 5.22, Hgb 14.7, Hct 43.5, MCV 83.3, MCH 28.2, MCHC 33.8, RDW 14.1, RDW Differential 42.5, Plt Count 238, MPV 10.9, Immature Gran % (Auto) 0.900, Neut % (Auto) 70.7 H, Lymph % (Auto) 21.0, [place] % (Auto) 6.0, Eos % (Auto) 0.9, Baso % (Auto) 0.5, Absolute Neuts (auto) 7.9 H, Total Counted Not Reportable 07/08/18 15:00: Sodium 137, Potassium 3.8, Chloride 107, Carbon Dioxide 24.0, Anion Gap 6, BUN 16, Creatinine 1.05, Est GFR (MDRD) Af Amer 103, Est GFR (MDRD) Non-Af 85, BUN/Creatinine Ratio 15.2, Glucose 157 H, Calcium 8.6, Troponin I < 0.015 07/08/18 15:10: D-Dimer Quant (PE/DVT) < 0.27 L 07/08/18 18:42: Troponin I < 0.015 07/08/18 18:42: Hemoglobin A1c 5.7 07/08/18 20:51: Troponin I < 0.015 07/09/18 05:00: WBC 9.7, RBC 5.13, Hgb 14.5, Hct 43.2, MCV 84.2, MCH 28.3, MCHC 33.6, RDW 14.2, RDW Differential 43.3, Plt Count 231, MPV 11.4 07/09/18 05:00: Sodium 141, Potassium 4.3, Chloride 109 H, Carbon Dioxide 26.0, Anion Gap 6, BUN 17, Creatinine 0.86, Est GFR (MDRD) Af Amer 129, Est GFR (MDRD) Non-Af 107, BUN/Creatinine Ratio 19.7, Glucose 103, Calcium 8.4 L, Triglycerides 197, Cholesterol 158, LDL Cholesterol 82, VLDL Cholesterol 39, HDL Cholesterol 37 L 07/09/18 05:00: PT 13.1, INR 1.0, APTT 28.1 Rhythm: EKG: ECHO: Stress Test: Cardiac Cath: PCI: CT Surgery: Holter monitor: EPS: PPM: CXR: Chest CT Scan: Assessment/Plan 1. Chest pain Patient's chest pain appears to have atypical features. He denies any previous family history of coronary artery disease. His cardiac enzyme has been negative x3. His nuclear stress test results are currently pending. He denied any shortness of breath or chest pain during his stress test. Based on results of his stress test, further recommendation will be made. 2. Jthlx-Mrzoanakt-Anjov Patient's EKG showed delta waves consistent with Yrpmz-Kqwlqmzcq-Yteld. His EKG in the morning showed sinus bradycardia. His heart rate is well controlled. He is not on any current rate limiting medications. At this time, we will continue to monitor. 3. Anxiety Patient expresses multiple high anxiety situations that have resulted in similar chest pain features. Patient results of his cardiac work-up he may require further evaluation with primary care physician regards to anxiety evaluation and treatment. 4. Obesity Patient is very eager to modify his lifestyle by increasing his exercise and improving his diet. We will continue to promote and support healthy weight loss. 5. Tobacco abuse Patient states that he recently quit smoking 2 months ago. He is reminded the importance of this in regards to cardiovascular health and pulmonary health. We will continue to promote and support smoking cessation. <Hank Kendrick - Last Filed: 07/09/18 10:41> Problem List (1) Chest pain Status: Acute (2) WPW (Lfegu-Dbvxtcpbh-Auwga syndrome) Status: Chronic (3) Nicotine abuse Status: Chronic Reason for Consult Reason for Consultation: Chest pain, possible WPW, abnormal stress test History of Present Illness: Patient seen and examined, and agree with above. Following attending addendum: The patient is a 33 year old M former smoker who quit about 2 months ago after [id number] smoking history, history of asthma, history of anxiety, no history of coronary artery disease or WPW. Approximately 2 years ago, the patient developed substernal chest pain as well as some shortness of breath but did not seek medical attention at that time. patient has had a difficult time maintaining optimal weight, and eats very poorly. He has a sedentary job as well. Recently after seeing a friend of his who is markedly overweight he quit smoking about 2 months ago. He is fairly active, without any exertional symptoms at home. Yesterday afternoon he had a significant confrontation which caused him to become very anxious, and developed midsternal substernal chest pain which radiated to the middle of his back between his shoulder blades. He also had associated diaphoresis, shortness of breath. When his symptoms did not improve he came to [facility] ER. At that time an EKG was performed which showed normal sinus rhythm with possible WPW and delta wave as well as possible old inferior wall myocardial infarction. His symptoms abated, and he was admitted to rule out for myocardial infarction. His troponins were negative x3, and he underwent a treadmill/MPI this morning. Patient had no exertional symptoms during the treadmill however he did have mild inferior ischemic changes on his nuclear imaging. Echocardiogram is pending. On further history he denies any family history of premature coronary disease, sudden cardiac , arrhythmias, or WPW. I reviewed his EKG which showed normal sinus rhythm, delta wave in the anterior leads, possible old inferior wall myocardial infarction, no acute changes. A previous EKG several years ago showed normal sinus rhythm at a faster heart rate and no obvious delta wave. [] Past Medical History - *Family History Maternal Family History: Family History (Last Updated 07/09/18 @ 09:51 by BUCK Dowell) Grandmother Diabetes Paternal Family History: Family History (Last Updated 07/09/18 @ 09:51 by BUCK Dowell) Grandmother Diabetes Review of Systems - Review of Systems General: Denies: Fever, Night Sweats, Fatigue Cardiovascular: Reports: Chest Discomfort, Chest Discomfort at Rest, Chest Pressure, Shortness of Breath, Shortness of Breath at Rest. Denies: Orthopnea, PND, Peripheral Edema, Palpitations, Lightheadedness, Dizziness, Near Syncope, Syncope Respiratory: Denies: Cough, Sputum Production, Hemoptysis Gastrointestinal: Denies: Hematemesis, Hematochezia, Melena Genitourinary: Denies: Dysuria, Hematuria Skin: Denies: Rash Subjectve: Patient laying in bed, no acute distress. Objective: Vital Signs Temp Pulse Resp BP Pulse Ox 97.9 F 65 18 135/86 H 96 07/09/18 06:27 07/09/18 06:27 07/09/18 06:27 07/09/18 06:27 07/09/18 06:27 Oxygen Flow Rate (L/min) 2 Oxygen Delivery Method Room Air Weight: 266 lb Body Mass Index (BMI) 36.1 Intake and Output for Last 24 Hours 07/07/18 07/08/18 07/09/18 23:59 23:59 23:59 Intake Total 866 / 866 460 / 460 Balance 866 / 866 460 / 460 General: Awake, Alert, Oriented x 3 HEENT: PERRL, EOMI, Sclera Non Icteric Neck: Supple, Good ROM, No Lymph Node Enlargement Lungs: Clear to auscultation Cardiovascular: Regular Rhythm, Normal S1, Normal S2, No Murmurs, No Rubs, No Gallops Vascular: No Carotid Bruits, Normal Femoral Pulses, Normal Radial Pulses, Normal Dorsalis Pedal Pulse, Normal Posterior Tibial Pulses Abdomen: Bowel Sounds Present, Soft, Non Tender, No HSM, No Organomegaly Extremities: No Cyanosis, No Clubbing, No edema Neurological: No Focal Motor or Sensory Deficit 07/08/18 15:00: WBC 11.1 H, RBC 5.22, Hgb 14.7, Hct 43.5, MCV 83.3, MCH 28.2, MCHC 33.8, RDW 14.1, RDW Differential 42.5, Plt Count 238, MPV 10.9, Immature Gran % (Auto) 0.900, Neut % (Auto) 70.7 H, Lymph % (Auto) 21.0, Armstrong % (Auto) 6.0, Eos % (Auto) 0.9, Baso % (Auto) 0.5, Absolute Neuts (auto) 7.9 H, Total Counted Not Reportable 07/08/18 15:00: Sodium 137, Potassium 3.8, Chloride 107, Carbon Dioxide 24.0, Anion Gap 6, BUN 16, Creatinine 1.05, Est GFR (MDRD) Af Amer 103, Est GFR (MDRD) Non-Af 85, BUN/Creatinine Ratio 15.2, Glucose 157 H, Calcium 8.6, Troponin I < 0.015 07/08/18 15:10: D-Dimer Quant (PE/DVT) < 0.27 L 07/08/18 18:42: Troponin I < 0.015 07/08/18 18:42: Hemoglobin A1c 5.7 07/08/18 20:51: Troponin I < 0.015 07/09/18 05:00: WBC 9.7, RBC 5.13, Hgb 14.5, Hct 43.2, MCV 84.2, MCH 28.3, MCHC 33.6, RDW 14.2, RDW Differential 43.3, Plt Count 231, MPV 11.4 07/09/18 05:00: Sodium 141, Potassium 4.3, Chloride 109 H, Carbon Dioxide 26.0, Anion Gap 6, BUN 17, Creatinine 0.86, Est GFR (MDRD) Af Amer 129, Est GFR (MDRD) Non-Af 107, BUN/Creatinine Ratio 19.7, Glucose 103, Calcium 8.4 L, Triglycerides 197, Cholesterol 158, LDL Cholesterol 82, VLDL Cholesterol 39, HDL Cholesterol 37 L 07/09/18 05:00: PT 13.1, INR 1.0, APTT 28.1 Rhythm: EKG: ECHO: Pending Stress Test: Abnormal for inferior ischemia. Cardiac Cath: PCI: CT Surgery: Holter monitor: EPS: PPM: CXR: Chest CT Scan: Assessment/Plan Attending addendum: Patient seen and examined agree with above. 1. Coronary artery disease: Given the patient's symptoms, risk factors, abnormal EKG, and abnormal treadmill/MPI, I recommended the patient undergo a diagnostic coronary angiogram to confirm/deny the presence of significant coronary atherosclerosis. Patient is on baby aspirin at this time, and we will add Plavix 300 mg x 1 now followed by 75 mg a day in anticipation of possible PCI. Patient has no overt coronary artery disease, I would have a low threshold to refer him to an it desktop support specialist to evaluate for possible ablation procedure given his WPW. I would not recommend beta-blockers, calcium channel blockers, or digoxin or other AV юлия rate limiting medications until this WW has been adjudicated properly. Patient may have amiodarone should the need arise if he has rapid atrial fibrillation or atrial flutter. 2. Hyperlipidemia: Patient's LDL is 82 and HDL is 37. Will consider statin based medications after his catheterization tomorrow. 3. WPW: The patient appears to have classic delta wave on his EKG which may be rate dependent. Would recommend EP evaluation to determine if he is a candidate for ablation procedure going forward. It is also possible patient may had an arrhythmia that may have triggered his symptoms. He may benefit from a 30-day event monitor prior to discharge. 4. Thank you very much for the opportunity to put dissipate in the cardiac care of your patient. Code Visit Inpatient E&M: 85736 Init Hosp L2
--- NOTE | 2018-07-09 10:30 | ECHOCS_ITS ---
Reason For Study: CAD Procedure This was a 2D Doppler, Color Flow transthoracic echocardiogram. Contrast injection was performed. The study was technically difficult. Exam performed portable in patient room. Left Ventricle Normal size and thickness. The estimated ejection fraction is 65 %. Normal diastology for age. No regional wall motion abnormalities noted. Right Ventricle Normal size and thickness. Normal systolic function. Atria Normal left atrium. Normal right atrium. Normal atrial septum. Mitral Valve The mitral valve is structurally normal. No prolapse or stenosis seen. Tricuspid Valve Normal tricuspid valve. Trivial tricuspid valve insufficiency. Right ventricular systolic pressure estimated to be 28 mmHg. Aortic Valve Normal aortic valve. Trisinus/trileaflet aortic valve. Pulmonic Valve Normal pulmonic valve. Great Vessels Normal aortic root. Normal arch. Normal inferior vena cava. Inferior vena cava collapse with sniff. Pericardium/Pleural No pericardial effusion. Medication Diluted definity 2.0ml given slow IV push to enhance endocardial definition. MMode/2D Measurements & Calculations LVIDd: 5.0 cm IVSd: 0.99 cm Ao root diam: 2.8 cm LVIDs: 3.5 cm LVPWd: 1.0 cm RVDd: 3.6 cm FS: 30.2 % LAV(MOD-bp): 46.8 ml LVAd ap4: 36.7 cm2 EDV(MOD-sp2): 139.7 ml LAV(MOD-bp) Indexed: 19.5 ml/m2 EDV(MOD-sp4): 122.0 ml EF(MOD-sp2): 69.1 % LAV(MOD-sp2): 44.0 ml EDV(sp4-el): 118.3 ml LAV(MOD-sp4): 47.6 ml LVAs ap4: 18.4 cm2 ESV(MOD-sp4): 39.8 ml ESV(sp4-el): 38.3 ml EF(MOD-sp4): 67.4 % EF(sp4-el): 67.6 % SV(MOD-sp4): 82.2 ml SV(MOD-sp2): 96.5 ml SV(sp4-el): 80.0 ml LA A4 area: 16.9 cm2 LA dimension(2D): 4.0 cm RA A4 area: 14.0 cm2 Time Measurements MV dec time: 0.27 sec Doppler Measurements & Calculations MV E max bridger: 85.5 cm/sec Lat Peak E' Bridger: 19.5 cm/sec Med Peak E' Bridger: 11.7 cm/sec MV A max bridger: 57.5 cm/sec E/E' lat: 4.4 E/E' med: 7.3 MV E/A: 1.5 Ao V2 max: 194.0 cm/sec LV V1 max: 127.0 cm/sec TR max bridger: 234.9 cm/sec Ao max P.1 mmHg LV V1 max P.5 mmHg TR max P.1 mmHg Interpretation Summary The estimated ejection fraction is 65 %. Normal diastology for age. Trivial tricuspid valve insufficiency. Right ventricular systolic pressure estimated to be 28 mmHg. The study was technically difficult. There is no comparison study available. Contrast injection was performed. Ordering Physician: Hank Kendrick Performed By: Luz Maria Sierra RDCS, RVT
[2018-07-09] MEDS: Clopidogrel Bisulfate 300 MG Tablet PO (13:01)
--- NOTE | 2018-07-09 13:02 | PCM.PROGNOTE ---
<Marce Agrawal - Last Filed: 07/09/18 13:17> Patient Problems: Active and Suspected Problems Chest pain (Acute) Subjective: Patient seen and examined. Denies further chest pain. Wishes to return home as soon as possible and states a lot of people depend on me. Underwent stress test which was abnormal. Plan for cardiac catheterization in the morning. - Physical Exam General: Alert, Oriented x3, Cooperative HEENT: Atraumatic, PERRLA, EOMI, Normocephalic Neck: Supple, No JVD, Negative Carotid Bruits Lungs: Clear to auscultation, Normal air movement Cardiovascular: Regular rate, Regular Rhythm, Normal S1, Normal S2, No murmurs Abdomen: Bowel Sounds Present, Soft, Non Tender, Non-Distended Extremities: No clubbing, No cyanosis, No edema, Capillary Refill Less than 3 Seconds Skin: No rashes, No breakdown Musculoskeletal: No Tenderness to Palpation of Joints or Extremities Neurological: Cranial nerves II-XII grossly intact, Neuro grossly intact Psych/Mental Status: Normal Affect, Appropriate Vital Signs Temp Pulse Resp BP Pulse Ox 98.3 F 64 16 148/70 H 97 07/09/18 11:51 07/09/18 11:51 07/09/18 11:51 07/09/18 11:51 07/09/18 11:51 Oxygen Flow Rate (L/min) 2 Oxygen Delivery Method Room Air Weight: 266 lb Body Mass Index (BMI) 36.1 Intake and Output for Last 24 Hours 07/07/18 07/08/18 07/09/18 23:59 23:59 23:59 Intake Total 866 / 866 460 / 460 Balance 866 / 866 460 / 460 Laboratory Tests Past 24 Hrs 07/08/18 07/08/18 07/08/18 15:00 15:00 15:10 WBC 11.1 H RBC 5.22 Hgb 14.7 Hct 43.5 MCV 83.3 MCH 28.2 MCHC 33.8 RDW 14.1 RDW Differential 42.5 Plt Count 238 MPV 10.9 Immature Gran % (Auto) 0.900 Neut % (Auto) 70.7 H Lymph % (Auto) 21.0 [place] % (Auto) 6.0 Eos % (Auto) 0.9 Baso % (Auto) 0.5 Absolute Neuts (auto) 7.9 H Absolute Lymphs (auto) 2.34 Total Counted Not Reportable PT INR APTT D-Dimer Quant (PE/DVT) < 0.27 L Sodium 137 Potassium 3.8 Chloride 107 Carbon Dioxide 24.0 Anion Gap 6 BUN 16 Creatinine 1.05 Estim Creat Clear Calc 107.78 Est GFR (MDRD) Af Amer 103 Est GFR (MDRD) Non-Af 85 BUN/Creatinine Ratio 15.2 Glucose 157 H Hemoglobin A1c Calcium 8.6 Troponin I < 0.015 Triglycerides Cholesterol LDL Cholesterol VLDL Cholesterol HDL Cholesterol TSH 07/08/18 07/08/18 07/08/18 18:42 18:42 20:51 WBC RBC Hgb Hct MCV MCH MCHC RDW RDW Differential Plt Count MPV Immature Gran % (Auto) Neut % (Auto) Lymph % (Auto) [place] % (Auto) Eos % (Auto) Baso % (Auto) Absolute Neuts (auto) Absolute Lymphs (auto) Total Counted PT INR APTT D-Dimer Quant (PE/DVT) Sodium Potassium Chloride Carbon Dioxide Anion Gap BUN Creatinine Estim Creat Clear Calc Est GFR (MDRD) Af Amer Est GFR (MDRD) Non-Af BUN/Creatinine Ratio Glucose Hemoglobin A1c 5.7 Calcium Troponin I < 0.015 < 0.015 Triglycerides Cholesterol LDL Cholesterol VLDL Cholesterol HDL Cholesterol TSH 1.82 07/09/18 07/09/18 07/09/18 05:00 05:00 05:00 WBC 9.7 RBC 5.13 Hgb 14.5 Hct 43.2 MCV 84.2 MCH 28.3 MCHC 33.6 RDW 14.2 RDW Differential 43.3 Plt Count 231 MPV 11.4 Immature Gran % (Auto) Neut % (Auto) Lymph % (Auto) [place] % (Auto) Eos % (Auto) Baso % (Auto) Absolute Neuts (auto) Absolute Lymphs (auto) Total Counted PT 13.1 INR 1.0 APTT 28.1 D-Dimer Quant (PE/DVT) Sodium 141 Potassium 4.3 Chloride 109 H Carbon Dioxide 26.0 Anion Gap 6 BUN 17 Creatinine 0.86 Estim Creat Clear Calc 131.59 Est GFR (MDRD) Af Amer 129 Est GFR (MDRD) Non-Af 107 BUN/Creatinine Ratio 19.7 Glucose 103 Hemoglobin A1c Calcium 8.4 L Troponin I Triglycerides 197 Cholesterol 158 LDL Cholesterol 82 VLDL Cholesterol 39 HDL Cholesterol 37 L TSH Medical Necessity - Tobacco Use Smoking Status: Former smoker Tobacco Use: Non-smoker Assessment/Plan All Active Problems Chest pain (Acute) 1. Chest pain, abnormal stress test-cardiology following. Troponin negative. EKG without ST-T changes. Stress test showed mild apical ischemia. Plan for cardiac catheterization in the morning. Continue aspirin, plavix. Echocardiogram ordered. 2. Possible WPW-cardiology following. Cardiology recommending EP evaluation and 30-day event monitor at discharge. 3. Mild intermittent asthma-no acute exacerbation. 4. Anxiety-not on regimen. Encourage outpatient follow-up. 5. Former nicotine dependence-reports he quit 2 months ago. Encouraged continued cessation. 6. Marijuana use- encouraged cessation. 7. Obesity-encouraged diet lifestyle modifications. Nutrition consult. DVT prophylaxis- lovenox sc This patient was seen by BUCK Herbert under the supervision of Dr. Jj. <Emmett Jj - Last Filed: 07/09/18 14:20> - Physical Exam Vital Signs Temp Pulse Resp BP Pulse Ox 98.3 F 64 16 148/70 H 97 07/09/18 11:51 07/09/18 11:51 07/09/18 11:51 07/09/18 11:51 07/09/18 11:51 Oxygen Flow Rate (L/min) 2 Oxygen Delivery Method Room Air Weight: 120.656 kg Body Mass Index (BMI) 36.1 Intake and Output for Last 24 Hours 07/07/18 07/08/18 07/09/18 23:59 23:59 23:59 Intake Total 866 / 866 460 / 460 Balance 866 / 866 460 / 460 Laboratory Tests Past 24 Hrs 07/08/18 07/08/18 07/08/18 15:00 15:00 15:10 WBC 11.1 H RBC 5.22 Hgb 14.7 Hct 43.5 MCV 83.3 MCH 28.2 MCHC 33.8 RDW 14.1 RDW Differential 42.5 Plt Count 238 MPV 10.9 Immature Gran % (Auto) 0.900 Neut % (Auto) 70.7 H Lymph % (Auto) 21.0 [place] % (Auto) 6.0 Eos % (Auto) 0.9 Baso % (Auto) 0.5 Absolute Neuts (auto) 7.9 H Absolute Lymphs (auto) 2.34 Total Counted Not Reportable PT INR APTT D-Dimer Quant (PE/DVT) < 0.27 L Sodium 137 Potassium 3.8 Chloride 107 Carbon Dioxide 24.0 Anion Gap 6 BUN 16 Creatinine 1.05 Estim Creat Clear Calc 107.78 Est GFR (MDRD) Af Amer 103 Est GFR (MDRD) Non-Af 85 BUN/Creatinine Ratio 15.2 Glucose 157 H Hemoglobin A1c Calcium 8.6 Troponin I < 0.015 Triglycerides Cholesterol LDL Cholesterol VLDL Cholesterol HDL Cholesterol TSH 07/08/18 07/08/18 07/08/18 18:42 18:42 20:51 WBC RBC Hgb Hct MCV MCH MCHC RDW RDW Differential Plt Count MPV Immature Gran % (Auto) Neut % (Auto) Lymph % (Auto) [place] % (Auto) Eos % (Auto) Baso % (Auto) Absolute Neuts (auto) Absolute Lymphs (auto) Total Counted PT INR APTT D-Dimer Quant (PE/DVT) Sodium Potassium Chloride Carbon Dioxide Anion Gap BUN Creatinine Estim Creat Clear Calc Est GFR (MDRD) Af Amer Est GFR (MDRD) Non-Af BUN/Creatinine Ratio Glucose Hemoglobin A1c 5.7 Calcium Troponin I < 0.015 < 0.015 Triglycerides Cholesterol LDL Cholesterol VLDL Cholesterol HDL Cholesterol TSH 1.82 07/09/18 07/09/18 07/09/18 05:00 05:00 05:00 WBC 9.7 RBC 5.13 Hgb 14.5 Hct 43.2 MCV 84.2 MCH 28.3 MCHC 33.6 RDW 14.2 RDW Differential 43.3 Plt Count 231 MPV 11.4 Immature Gran % (Auto) Neut % (Auto) Lymph % (Auto) [place] % (Auto) Eos % (Auto) Baso % (Auto) Absolute Neuts (auto) Absolute Lymphs (auto) Total Counted PT 13.1 INR 1.0 APTT 28.1 D-Dimer Quant (PE/DVT) Sodium 141 Potassium 4.3 Chloride 109 H Carbon Dioxide 26.0 Anion Gap 6 BUN 17 Creatinine 0.86 Estim Creat Clear Calc 131.59 Est GFR (MDRD) Af Amer 129 Est GFR (MDRD) Non-Af 107 BUN/Creatinine Ratio 19.7 Glucose 103 Hemoglobin A1c Calcium 8.4 L Troponin I Triglycerides 197 Cholesterol 158 LDL Cholesterol 82 VLDL Cholesterol 39 HDL Cholesterol 37 L TSH Assessment/Plan This patient was seen in conjunction with BUCK Herbert . I have independently interviewed and examined the patient and reviewed pertinent historical, laboratory, and other data. Please refer to BUCK Herbert note for details of this patient's presentation, findings, and recommendations. I have reviewed BUCK Herbert note and concur with documented findings. In brief, 33-year-old gentleman who presented with chest pain placed on a monitored bed MT was ruled out with serial cardiac enzymes subsequently underwent a nuclear stress test which came back positive for stress-induced ischemia consult subsequently placed to cardiology with plans for patient undergo left heart catheterization with possible intervention if needed on 07/10/2018 Physical Examination: GENERAL: cooperative HEENT: Atraumatic; moist oral mucosa EYES; Anicteric, Normal Conjunctiva NECK; supple, normal thyroid, no distended JVD. RESPIRATORY: Diminished to auscultation bilaterally, NEURO: Awake; no lateralizing signs. SKIN: No Rash PSYCH; Normal affect Assessment: 1. Chest pain with positive stress test 2. Suspected WPW 3. Mild intermittent asthma 4. Obesity with BMI of 36.1 5. Cannabis use 6. Anxiety disorder 7. DVT prophylaxis SC Lovenox Recommendations: 1. I have discussed the results of my overview and impressions with the patient 2. Options for management were reviewed Code Visit OBSV E&M: [id number] Observ/hosp same date L3
[2018-07-09 17:52] LABS: Color, Urine Yellow (Yellow); Glucose, Dipstick Normal (Normal); Ketone-Dipstick Negative (Negative); Leukocyte Esterase-Dipstick Negative /ul (Negative); Nitrite-Dipstick Negative (Negative); Occult Blood-Urine Negative /ul (Negative); Protein-Dipstick Negative (Negative); Specific Gravity, Urine 1.015 (1.002-1.030); Urine Bilirubin Dipstick Negative (Negative); Urine Clarity Clear (Clear); Urine Urobilinogen Normal (Normal); Urine pH 6.5 (5.0 - 8.0)
[2018-07-09 18:46] LABS: Amphetamine Urine VISTA NEGATIVE (<1000 ng/mL); Barbiturate Urine VISTA NEGATIVE (< 200 ng/mL); Benzodiazepine Urine VISTA NEGATIVE (< 200 ng/mL); Cocaine Urine VISTA NEGATIVE (< 300 ng/mL); Ecstacy Urine VISTA NEGATIVE (< 500 ng/mL); Methadone Urine VISTA NEGATIVE (< 300 ng/mL); PCP Urine VISTA NEGATIVE (< 25 ng/mL); THC Urine VISTA POSITIVE (< 50 ng/mL); Vista UDS pH Range 6
[2018-07-09] MEDS: LORazepam 0.5 MG Tablet PO (22:20)
[2018-07-09 23:31] LABS: Bedside Glucose 105 mg/dL (70-110)
[2018-07-10] VITALS (15 sets, daily range): BP systolic 139–167; BP diastolic 74–95; PULSE 65–88; RESP 16–18; TEMP 36.6–36.9; O2SAT 97–100
--- NOTE | 2018-07-10 04:00 | EKG12_ITS ---
Test Reason : CP Blood Pressure : / mmHG Vent. Rate : 067 BPM Atrial Rate : 067 BPM P-R Int : 116 ms QRS Dur : 104 ms QT Int : 394 ms P-R-T Axes : 068 029 063 degrees QTc Int : 416 ms Normal sinus rhythm Kbyri-Ulvxmnsmp-Vjtuq Abnormal ECG When compared with ECG of 26-SEP-2008 16:43, Fgemt-Rfinlnvlt-Kodmd is now Present Confirmed by ANGEL SANTOS ([id number]), health editor SOILA MARTINES ([id number]) on 07/13/2018 2:24:44 PM Referred By: RAJAT Confirmed By:PAT SANTOS
[2018-07-10 04:39] LABS: Hematocrit 44.8 % (40-54); Mean Corp Hgb Conc 33.5 g/gl (32-36); Mean Corpuscular Volume 83.7 fL (80-94); Mean Platelet Vol. 10.9 fl (6.2-12.0); Platelet Count 249 K/mm3 (150-450); RBC Distribution Width CV 14.2 % (11.6-14.6); RBC Distribution Width SD 43.1 fl (35.1-43.9); Red Blood Count 5.35 M/mm3 (4.6-6.2); White Blood Count 10.5 K/mm3 (4.4-11.0)
[2018-07-10 04:43] LABS: Partial Thromboplast Time 28.4 Seconds (24.1-36.2)
[2018-07-10 04:47] LABS: Anion Gap 9 (5-15); BUN 19 mg/dL (7-18); BUN/Creat Ratio 21.9 RATIO (10-20); Calcium,Total 8.8 mg/dL (8.5-10.1); Chloride 107 mmol/L (98-107); Creatinine, Serum 0.87 mg/dL (0.70-1.30); EST Glomerular Filtration Rate 106 mL/min (>60); Est Glom Filt Rate - Afr Amer 128 mL/min (>60); Estimated Creatinine Clearance 130.08 ml/min; Glucose 113 mg/dL (74-106); Potassium 4.5 mmol/L (3.5-5.1); Sodium Level 140 mmol/L (136-145)
[2018-07-10 05:04] LABS: Scan Indicated on CBC? Y/N NO
--- NOTE | 2018-07-10 05:18 | EKG12_ITS ---
Test Reason : AM Blood Pressure : / mmHG Vent. Rate : 065 BPM Atrial Rate : 065 BPM P-R Int : 118 ms QRS Dur : 108 ms QT Int : 396 ms P-R-T Axes : 070 057 070 degrees QTc Int : 411 ms Normal sinus rhythm Mnsgl-Fjiifedxo-Kikoh - cannot be excluded Abnormal ECG Confirmed by LORRAINE WILEY, ADAM ([id number]), fan mail editor BRENNAN JORDAN ([id number]) on 07/16/2018 10:02:33 AM Referred By: Marce Agrawal Confirmed By:ADAM PETERS MD
[2018-07-10] MEDS: Clopidogrel Bisulfate 75 MG Tablet PO (06:50)
[2018-07-10] MEDS: LORazepam 0.5 MG Tablet PO (06:50)
[2018-07-10] MEDS: Aspirin 81 MG TAB.CHEW PO (06:50)
[2018-07-10] MEDS: 0.9% Normal Saline 1,000 ML 30 ML IV (06:51)
[2018-07-10 07:06] LABS: Bedside Glucose 118 mg/dL (70-110)
[2018-07-10] MEDS: DiphenhydrAMINE 25 MG Capsule 50 MG PO (07:15)
--- NOTE | 2018-07-10 08:11 | CL.D_ITS ---
Patient Name: AGATA [facility]AMP [facility] Study Date: 07/10/2018 Performing: Hank Kendrick MD Ht: 72.04 inches 183 cm : 1985 Wt: 266.76 lbs 121 kg Age: 33 Gender: male BSA: 2.41 PROCEDURE(S) PERFORMED KT12-FRC/COR/LV CLINICAL PROFILE AND INDICATIONS Indications: New Onset Angina <= 2 months, Suspected CAD Heart Failure: None Stress/Imaging Date: 07/09/2018Stress Test with SPECT MPI: Positive Low Risk Angina Classification Anginal Classification w/in 2 Weeks: No symptoms CAD Presentations: Unstable angina. Comorbidities/Risk Factors: Hypertension CONCLUSIONS Normal coronary arteries Normal LV size, wall motion,and systolic function Perserved Left Ventricular systolic function with normal EDP RECOMMENDATIONS D/c asa/plavix. 30 day event monitor for possible arrhythmia given possible WPW. Avoid all rate controlling meds like beta blockers, calcium channel blockers, digoxin until pt is teofilo luated by Dr Mcintyre. Manual sheath removal. Start Cozaar 25mg daily for HTN. D/w Dr Jj. DESCRIPTION OF PROCEDURE The patient arrived to the procedure lab. The risks and benefits of the procedure as well as a full d escription of our services here and current unavailability of surgical backup were fully explained to the patient and/or their significant other prior to the catheterization. The Timeout was completed, verifying the correct patient and procedure. The patient's procedural site was prepped and draped in the usual fashion. Local anesthetic was given subcutaneously to right groin region with Lidocaine 2%. Using a modified Seldinger technique, arterial access was obtained via the right femoral artery, a 4 Fr sheath was inserted Left Coronary Artery selective angiography was performed in multiple views us ing a 4 Fr. JL5 catheter. Right Coronary Artery selective angiography was then performed in multiple views using a 4 Fr. 3DRC catheter. Left Ventriculography was performed in RAYA projection using a 4 Fr . Pigtail catheter. LV to AO pullback pressures were then recorded.The arterial sheath was pulled and manual compression applied until hemostasis is achieved. CORONARY ANGIOGRAPHY DOMINANCE: Left Dominant LEFT HEART ASSESSMENT Left Ventricular Ejection Fraction: by LV Gram 65 % LV wall motion not assessed. Normal LV wall motion Normal Left Ventricular systolic function Normal Left Ventricular systolic function LEFT MAIN: Angiographically normal LEFT ANTERIOR DESCENDING ARTERY: Angiographically normal CIRCUMFLEX ARTERY: Angiographically normal RIGHT CORONARY ARTERY: Angiographically normal COMPLICATIONS No Complications PROCEDURE MEDICATIONS Versed 1 mg IV Oxygen: 2 L/min via nasal cannula SUMMARY OF HEMODYNAMIC DATA Time AIR REST ECG 07:35:40 AO 144/106 (126) SA 07:53:21 LV 167/-18, 14 07:59:04 LV 170/-18, 13 07:59:11 LVp 171/-23, 12 07:59:15 AOp 158/88 (119) 07:59:20 Signed By Hank Kendrick MD On 07/10/2018 08:10:23 Hank Kendrick MD
--- NOTE | 2018-07-10 08:44 | CASEMGMT ---
According to the [facility] website, the following are in-network tertiary facilities: [facility], [place], [facility], [facility], [facility], [facility], and . Moshe VENCES CM
[2018-07-10] MEDS: Losartan Potassium 25 MG Tablet PO (09:58)
--- NOTE | 2018-07-10 10:26 | PCM.DC ---
- Discharge Diagnoses Current Active Problems: Current Active and Chronic Problems History of left heart catheterization (Chronic 07/10/18) Normal coronaries per Dr. Kendrick @ [facility] 07/10/2018 Chest pain (Acute) WPW (Ehmyp-Hvlenifgh-Bfbal syndrome) (Chronic) Nicotine abuse (Chronic) Obesity (Chronic) Anxiety (Chronic) You will use the following diet at home:: Cardiac Discharge Activity: Return to Normal Activity Call your doctor if you observe: Shortness of breath, Dizziness, Fainting spells, Chest pain, Increased palpitations (irregular heartbeat) Allergies/Adverse Reactions: Allergies morphine Allergy (Verified 07/08/18 14:42) Hives Medications to take at Discharge Albuterol Inhaler [Ventolin Hfa] 1 - 2 puff INHALATION Q4H PRN PRN 06/13/13 Fluticasone 0.05% [Flonase Nasal [place]] 2 spray NASAL DAILY 07/08/18 Losartan Potassium [Cozaar] 25 mg PO DAILY #30 tablet 07/10/18 The following prescriptions were given: Losartan Potassium [Cozaar] 25 mg PO DAILY #30 tablet Orders to be completed after discharge: 30-Day Event Recorder [[facility]] Location: None Selected Electrophysiology Location: None Selected Primary Care Physician: Care Physician,No Primary [Primary Care Provider] - Please follow up with your Primary Care Physician in: 1 Week Test Results: Test results from this visit will be discussed in further detail at your follow-up appointment, if applicable. Please Follow Up With: Hank Kendrick MD When: 4-6 Weeks, May see HAT BLOCKING MACHINE OPERATOR/PA Please Follow Up With: Dr. Castrejon - Reconciliation Coordinator When: 1-2 Weeks Proposed Discharge Date: 07/10/18
--- NOTE | 2018-07-10 10:30 | DCINST_ITS ---
- Discharge Diagnoses Current Active Problems: Current Active and Chronic Problems History of left heart catheterization (Chronic 07/10/18) Normal coronaries per Dr. Kendrick @ [facility] 07/10/2018 Chest pain (Acute) WPW (Brvwk-Xbvxraodk-Twfoy syndrome) (Chronic) Nicotine abuse (Chronic) Obesity (Chronic) Anxiety (Chronic) You will use the following diet at home:: Cardiac Discharge Activity: Return to Normal Activity Call your doctor if you observe: Shortness of breath, Dizziness, Fainting spells, Chest pain, Increased palpitations (irregular heartbeat) Allergies/Adverse Reactions: Allergies morphine Allergy (Verified 07/08/18 14:42) Hives Medications to take at Discharge Albuterol Inhaler [Ventolin Hfa] 1 - 2 puff INHALATION Q4H PRN PRN 06/13/13 Fluticasone 0.05% [Flonase Nasal [place]] 2 spray NASAL DAILY 07/08/18 Losartan Potassium [Cozaar] 25 mg PO DAILY #30 tablet 07/10/18 The following prescriptions were given: Losartan Potassium [Cozaar] 25 mg PO DAILY #30 tablet Orders to be completed after discharge: 30-Day Event Recorder [[facility]] Location: None Selected Electrophysiology Location: None Selected Primary Care Physician: Care Physician,No Primary [Primary Care Provider] - Please follow up with your Primary Care Physician in: 1 Week Test Results: Test results from this visit will be discussed in further detail at your follow- up appointment, if applicable. Please Follow Up With: Hank Kendrick MD When: 4-6 Weeks, May see RN STARS/PA Please Follow Up With: Dr. Castreojn - Kitchen Work Supervisor When: 1-2 Weeks Proposed Discharge Date: 07/10/18
--- NOTE | 2018-07-10 10:32 | PCM.DC.SUM ---
<Marce Agrawal - Last Filed: 07/10/18 10:59> Discharge Date and Diagnosis Date of Admission: 07/08/18 Date of Discharge: 07/10/18 - Primary Discharge Diagnosis Active and Suspected Problems 1. Chest pain, abnormal stress test-ACS ruled out 2. WPW 3. Mild intermittent asthma 4. Anxiety 5. Former nicotine dependence 6. Marijuana use 7. Obesity 8. HTN, new diagnosis - Secondary Discharge Diagnosis Chronic Problems History of left heart catheterization (Chronic 07/10/18) Normal coronaries per Dr. Kendrick @ [facility] 07/10/2018 WPW (Zvaas-Barsezsgv-Oncgb syndrome) (Chronic) Nicotine abuse (Chronic) Obesity (Chronic) Anxiety (Chronic) Hospital Course and Treatment Imaging Results: Diagnostic Data Chest X-Ray 07/08/18 15:00 IMPRESSION: Normal x-ray examination of the chest. Electronically Signed: Maxim Eden, at 16:03 EDT Tel , Service support , Dr. Kendrick- Cardiology Operations: None Procedures: 2-D Echocardiogram, Cardiac catheterization, Stress test Summary of Care Provided: The patient is a 33 year old M admitted 07/08/2018 due to chest pain. 1. Chest pain, abnormal stress test-ACS ruled out. Troponin negative. EKG without ST-T changes. Stress test showed mild apical ischemia. Patient underwent cardiac catheterization which demonstrated normal coronary arteries. Cardiology, Dr. Kendrick consulted. Recommending 30-day event monitor at discharge for possible WPW. Cozaar 25mg daily initiated for hypertension. Echocardiogram showed EF 65%. Follow up with Dr. Kendrick in 1-2 weeks. 2. Possible WPW-cardiology following. Cardiology recommending EP evaluation and 30-day event monitor at discharge. Follow-up with Dr. Mcintyre in 1-2 weeks, EP. 3. Mild intermittent asthma-no acute exacerbation. 4. Anxiety-not on regimen. Encourage outpatient follow-up. 5. Former nicotine dependence-reports he quit 2 months ago. Encouraged continued cessation. 6. Marijuana use- encouraged cessation. Tox screen positive for cannabinoids, negative for other substances. 7. Obesity-encouraged diet lifestyle modifications. 8. HTN, new diagnosis- Initiated on Cozzar. General: Alert, Oriented x3, Cooperative HEENT: Atraumatic, PERRLA, EOMI, Normocephalic Neck: Supple, No JVD, Negative Carotid Bruits Lungs: Clear to auscultation, Normal air movement Cardiovascular: Regular rate, Regular Rhythm, Normal S1, Normal S2, No murmurs Abdomen: Bowel Sounds Present, Soft, Non Tender, Non-Distended Extremities: No clubbing, No cyanosis, No edema, Capillary Refill Less than 3 Seconds Skin: No rashes, No breakdown Musculoskeletal: No Tenderness to Palpation of Joints or Extremities Neurological: Cranial nerves II-XII grossly intact, Neuro grossly intact Psych/Mental Status: Normal Affect, Appropriate Patient seen and examined prior to discharge. Physical assessment as noted above. Patient is stable for discharge with follow up recommendations as noted above. This patient was seen by BUCK Herbert under the supervision of Dr. Jj. - Physical Exam Vital Signs Temp Pulse Resp BP Pulse Ox 97.9 F 83 16 165/95 H 98 07/10/18 10:16 07/10/18 10:16 07/10/18 10:16 07/10/18 10:16 07/10/18 10:16 Oxygen Flow Rate (L/min) 2 Oxygen Delivery Method Room Air Weight: 266 lb Body Mass Index (BMI) 36.1 Intake and Output for Last 24 Hours 07/08/18 07/09/18 07/10/18 23:59 23:59 23:59 Intake Total 866 / 866 460 / 460 Balance 866 / 866 460 / 460 Laboratory Tests Past 24 Hrs 07/09/18 07/09/18 07/10/18 17:15 17:15 04:14 WBC 10.5 RBC 5.35 Hgb 15.0 Hct 44.8 MCV 83.7 MCH 28.0 MCHC 33.5 RDW 14.2 RDW Differential 43.1 Plt Count 249 MPV 10.9 PT INR APTT Sodium Potassium Chloride Carbon Dioxide Anion Gap BUN Creatinine Estim Creat Clear Calc Est GFR (MDRD) Af Amer Est GFR (MDRD) Non-Af BUN/Creatinine Ratio Glucose Calcium Urine Color Yellow Urine Clarity Clear Urine pH 6.5 Ur Specific [place] 1.015 Urine Protein Negative Urine Glucose (UA) Normal Urine Ketones Negative Urine Occult Blood Negative Urine Nitrite Negative Urine Bilirubin Negative Urine Urobilinogen Normal Ur Leukocyte Esterase Negative Urine Opiates Screen NEGATIVE Urine Methadone Screen NEGATIVE Ur Barbiturates Screen NEGATIVE Ur Phencyclidine Scrn NEGATIVE Ur Amphetamines Screen NEGATIVE U Methamphetamin-MDMA NEGATIVE U Benzodiazepines Scrn NEGATIVE Urine Cocaine Screen NEGATIVE U Cannabinoids Screen POSITIVE H Ur Drug Screen Comment 07/10/18 07/10/18 04:14 04:14 WBC RBC Hgb Hct MCV MCH MCHC RDW RDW Differential Plt Count MPV PT 13.0 INR 1.0 APTT 28.4 Sodium 140 Potassium 4.5 Chloride 107 Carbon Dioxide 24.0 Anion Gap 9 BUN 19 H Creatinine 0.87 Estim Creat Clear Calc 130.08 Est GFR (MDRD) Af Amer 128 Est GFR (MDRD) Non-Af 106 BUN/Creatinine Ratio 21.9 H Glucose 113 H Calcium 8.8 Urine Color Urine Clarity Urine pH Ur Specific [place] Urine Protein Urine Glucose (UA) Urine Ketones Urine Occult Blood Urine Nitrite Urine Bilirubin Urine Urobilinogen Ur Leukocyte Esterase Urine Opiates Screen Urine Methadone Screen Ur Barbiturates Screen Ur Phencyclidine Scrn Ur Amphetamines Screen U Methamphetamin-MDMA U Benzodiazepines Scrn Urine Cocaine Screen U Cannabinoids Screen Ur Drug Screen Comment POC Glucose 07/10/18 07/09/18 06:45 21:49 POC Glucose 118 H 105 Discharge Diet: Low fat/ Low Cholesterol Discharge Activity: Return to Normal Activity Call your doctor if you observe: Shortness of breath, Dizziness, Fainting spells, Chest pain, Increased palpitations (irregular heartbeat) Home Medications: Medications to take at Discharge Albuterol Inhaler [Ventolin Hfa] 1 - 2 puff INHALATION Q4H PRN PRN 06/13/13 Fluticasone 0.05% [Flonase Nasal [place]] 2 spray NASAL DAILY 07/08/18 Losartan Potassium [Cozaar] 25 mg PO DAILY #30 tablet 07/10/18 Following Prescrptions Were Given to Patient: Losartan Potassium [Cozaar] 25 mg PO DAILY #30 tablet Other Amb Orders: 30-Day Event Recorder [[facility]] Location: None Selected Electrophysiology Location: None Selected Primary Care Physician: Care Physician,No Primary [Primary Care Provider] - Please follow up with your Primary Care Physician in: 1 Week Please Follow Up With: Hank Kendrick MD When: 4-6 Weeks, May see ATTENDANT CHILD ACTIVITY/PA Please Follow Up With: Dr. Castrejon - Traveling Inventory Associate When: 1-2 Weeks Disposition: Home Minutes spent on discharge:: 35 Patient Condition:: Stable Medical Necessity - Tobacco Use Smoking Status: Former smoker Tobacco Use: Non-smoker Meaningful Use Info Meaningful Use Diagnoses (Choose all that apply): None applicable <Emmett Jj - Last Filed: 07/10/18 11:34> Discharge Date and Diagnosis - Secondary Discharge Diagnosis Chronic Problems (Last Updated 07/10/18 @ 10:33 by BUCK Herbert) History of left heart catheterization (Chronic 07/10/18) Normal coronaries per Dr. Kendrick @ [facility] 07/10/2018 WPW (Spjzq-Ateuhmrch-Fsbht syndrome) (Chronic) Nicotine abuse (Chronic) Obesity (Chronic) Anxiety (Chronic) Hospital Course and Treatment Summary of Care Provided: This patient was seen in conjunction with BUCK Herbert . I have independently interviewed and examined the patient and reviewed pertinent historical, laboratory, and other data. Please refer to BUCK Herbert note for details of this patient's presentation, findings, and recommendations. I have reviewed BUCK Herbert note and concur with documented findings. In brief, 33-year-old gentleman who presented with chest pain placed on a monitored bed IA was ruled out with serial cardiac enzymes subsequently underwent a nuclear stress test which came back positive for stress-induced ischemia consult subsequently placed to cardiology patient underwent left heart catheterization on 07/10/2018 which failed to demonstrate any hemodynamically significant obstructive lesions. Physical Examination: GENERAL: cooperative HEENT: Atraumatic; moist oral mucosa EYES; Anicteric, Normal Conjunctiva NECK; supple, normal thyroid, no distended JVD. RESPIRATORY: Diminished to auscultation bilaterally, NEURO: Awake; no lateralizing signs. SKIN: No Rash PSYCH; Normal affect Assessment: 1. Chest pain with positive stress test with a negative left heart catheterization on 07/10/2018 2. Suspected WPW: Patient be discharged home with an event monitor and a subsequent follow-up with EP physician 3. Mild intermittent asthma 4. Obesity with BMI of 36.1 5. Cannabis use 6. Anxiety disorder 7. DVT prophylaxis SC Lovenox - Physical Exam Vital Signs Temp Pulse Resp BP Pulse Ox 97.9 F 88 16 165/95 H 98 07/10/18 10:16 07/10/18 10:38 07/10/18 10:16 07/10/18 10:16 07/10/18 10:16 Oxygen Flow Rate (L/min) 2 Oxygen Delivery Method Room Air Weight: 120.656 kg Body Mass Index (BMI) 36.1 Intake and Output for Last 24 Hours 07/08/18 07/09/18 07/10/18 23:59 23:59 23:59 Intake Total 866 / 866 460 / 460 240 / 240 Balance 866 / 866 460 / 460 240 / 240 Laboratory Tests Past 24 Hrs 07/09/18 07/09/18 07/10/18 17:15 17:15 04:14 WBC 10.5 RBC 5.35 Hgb 15.0 Hct 44.8 MCV 83.7 MCH 28.0 MCHC 33.5 RDW 14.2 RDW Differential 43.1 Plt Count 249 MPV 10.9 PT INR APTT Sodium Potassium Chloride Carbon Dioxide Anion Gap BUN Creatinine Estim Creat Clear Calc Est GFR (MDRD) Af Amer Est GFR (MDRD) Non-Af BUN/Creatinine Ratio Glucose Calcium Urine Color Yellow Urine Clarity Clear Urine pH 6.5 Ur Specific [place] 1.015 Urine Protein Negative Urine Glucose (UA) Normal Urine Ketones Negative Urine Occult Blood Negative Urine Nitrite Negative Urine Bilirubin Negative Urine Urobilinogen Normal Ur Leukocyte Esterase Negative Urine Opiates Screen NEGATIVE Urine Methadone Screen NEGATIVE Ur Barbiturates Screen NEGATIVE Ur Phencyclidine Scrn NEGATIVE Ur Amphetamines Screen NEGATIVE U Methamphetamin-MDMA NEGATIVE U Benzodiazepines Scrn NEGATIVE Urine Cocaine Screen NEGATIVE U Cannabinoids Screen POSITIVE H Ur Drug Screen Comment 07/10/18 07/10/18 04:14 04:14 WBC RBC Hgb Hct MCV MCH MCHC RDW RDW Differential Plt Count MPV PT 13.0 INR 1.0 APTT 28.4 Sodium 140 Potassium 4.5 Chloride 107 Carbon Dioxide 24.0 Anion Gap 9 BUN 19 H Creatinine 0.87 Estim Creat Clear Calc 130.08 Est GFR (MDRD) Af Amer 128 Est GFR (MDRD) Non-Af 106 BUN/Creatinine Ratio 21.9 H Glucose 113 H Calcium 8.8 Urine Color Urine Clarity Urine pH Ur Specific [place] Urine Protein Urine Glucose (UA) Urine Ketones Urine Occult Blood Urine Nitrite Urine Bilirubin Urine Urobilinogen Ur Leukocyte Esterase Urine Opiates Screen Urine Methadone Screen Ur Barbiturates Screen Ur Phencyclidine Scrn Ur Amphetamines Screen U Methamphetamin-MDMA U Benzodiazepines Scrn Urine Cocaine Screen U Cannabinoids Screen Ur Drug Screen Comment POC Glucose 07/10/18 07/09/18 06:45 21:49 POC Glucose 118 H 105 Code Visit OBSV E&M: [id number] Observation care discharge
--- NOTE | 2018-07-10 10:37 | DS.PCM_ITS ---
<Marce Agrawal - Last Filed: 07/10/18 10:59> Discharge Date and Diagnosis Date of Admission: 07/08/18 Date of Discharge: 07/10/18 - Primary Discharge Diagnosis Active and Suspected Problems 1. Chest pain, abnormal stress test-ACS ruled out 2. WPW 3. Mild intermittent asthma 4. Anxiety 5. Former nicotine dependence 6. Marijuana use 7. Obesity 8. HTN, new diagnosis - Secondary Discharge Diagnosis Chronic Problems History of left heart catheterization (Chronic 07/10/18) Normal coronaries per Dr. Kendrick @ [facility] 07/10/2018 WPW (Eynnf-Eqaiuyxpc-Loobf syndrome) (Chronic) Nicotine abuse (Chronic) Obesity (Chronic) Anxiety (Chronic) Hospital Course and Treatment Imaging Results: Diagnostic Data Chest X-Ray 07/08/18 15:00 IMPRESSION: Normal x-ray examination of the chest. Electronically Signed: Maxim Eden, at 16:03 EDT Tel , Service support , Dr. Kendrick- Cardiology Operations: None Procedures: 2-D Echocardiogram, Cardiac catheterization, Stress test Summary of Care Provided: The patient is a 33 year old M admitted 07/08/2018 due to chest pain. 1. Chest pain, abnormal stress test-ACS ruled out. Troponin negative. EKG without ST-T changes. Stress test showed mild apical ischemia. Patient underwent cardiac catheterization which demonstrated normal coronary arteries. Cardiology, Dr. Kendrick consulted. Recommending 30-day event monitor at discharge for possible WPW. Cozaar 25mg daily initiated for hypertension. Echocardiogram showed EF 65%. Follow up with Dr. Kendrick in 1-2 weeks. 2. Possible WPW-cardiology following. Cardiology recommending EP evaluation and 30-day event monitor at discharge. Follow-up with Dr. Mcintyre in 1-2 weeks, EP. 3. Mild intermittent asthma-no acute exacerbation. 4. Anxiety-not on regimen. Encourage outpatient follow-up. 5. Former nicotine dependence-reports he quit 2 months ago. Encouraged continued cessation. 6. Marijuana use- encouraged cessation. Tox screen positive for cannabinoids, negative for other substances. 7. Obesity-encouraged diet lifestyle modifications. 8. HTN, new diagnosis- Initiated on Cozzar. General: Alert, Oriented x3, Cooperative HEENT: Atraumatic, PERRLA, EOMI, Normocephalic Neck: Supple, No JVD, Negative Carotid Bruits Lungs: Clear to auscultation, Normal air movement Cardiovascular: Regular rate, Regular Rhythm, Normal S1, Normal S2, No murmurs Abdomen: Bowel Sounds Present, Soft, Non Tender, Non-Distended Extremities: No clubbing, No cyanosis, No edema, Capillary Refill Less than 3 Seconds Skin: No rashes, No breakdown Musculoskeletal: No Tenderness to Palpation of Joints or Extremities Neurological: Cranial nerves II-XII grossly intact, Neuro grossly intact Psych/Mental Status: Normal Affect, Appropriate Patient seen and examined prior to discharge. Physical assessment as noted above. Patient is stable for discharge with follow up recommendations as noted above. This patient was seen by BUCK Herbert under the supervision of Dr. Jj. - Physical Exam Vital Signs Temp Pulse Resp BP Pulse Ox 97.9 F 83 16 165/95 H 98 07/10/18 10:16 07/10/18 10:16 07/10/18 10:16 07/10/18 10:16 07/10/18 10:16 Oxygen Flow Rate (L/min) 2 Oxygen Delivery Method Room Air Weight: 266 lb Body Mass Index (BMI) 36.1 Intake and Output for Last 24 Hours 07/08/18 07/09/18 07/10/18 23:59 23:59 23:59 Intake Total 866 / 866 460 / 460 Balance 866 / 866 460 / 460 Laboratory Tests Past 24 Hrs 07/09/18 07/09/18 07/10/18 17:15 17:15 04:14 WBC 10.5 RBC 5.35 Hgb 15.0 Hct 44.8 MCV 83.7 MCH 28.0 MCHC 33.5 RDW 14.2 RDW Differential 43.1 Plt Count 249 MPV 10.9 PT INR APTT Sodium Potassium Chloride Carbon Dioxide Anion Gap BUN Creatinine Estim Creat Clear Calc Est GFR (MDRD) Af Amer Est GFR (MDRD) Non-Af BUN/Creatinine Ratio Glucose Calcium Urine Color Yellow Urine Clarity Clear Urine pH 6.5 Ur Specific Peerless 1.015 Urine Protein Negative Urine Glucose (UA) Normal Urine Ketones Negative Urine Occult Blood Negative Urine Nitrite Negative Urine Bilirubin Negative Urine Urobilinogen Normal Ur Leukocyte Esterase Negative Urine Opiates Screen NEGATIVE Urine Methadone Screen NEGATIVE Ur Barbiturates Screen NEGATIVE Ur Phencyclidine Scrn NEGATIVE Ur Amphetamines Screen NEGATIVE U Methamphetamin-MDMA NEGATIVE U Benzodiazepines Scrn NEGATIVE Urine Cocaine Screen NEGATIVE U Cannabinoids Screen POSITIVE H Ur Drug Screen Comment 07/10/18 07/10/18 04:14 04:14 WBC RBC Hgb Hct MCV MCH MCHC RDW RDW Differential Plt Count MPV PT 13.0 INR 1.0 APTT 28.4 Sodium 140 Potassium 4.5 Chloride 107 Carbon Dioxide 24.0 Anion Gap 9 BUN 19 H Creatinine 0.87 Estim Creat Clear Calc 130.08 Est GFR (MDRD) Af Amer 128 Est GFR (MDRD) Non-Af 106 BUN/Creatinine Ratio 21.9 H Glucose 113 H Calcium 8.8 Urine Color Urine Clarity Urine pH Ur Specific Peerless Urine Protein Urine Glucose (UA) Urine Ketones Urine Occult Blood Urine Nitrite Urine Bilirubin Urine Urobilinogen Ur Leukocyte Esterase Urine Opiates Screen Urine Methadone Screen Ur Barbiturates Screen Ur Phencyclidine Scrn Ur Amphetamines Screen U Methamphetamin-MDMA U Benzodiazepines Scrn Urine Cocaine Screen U Cannabinoids Screen Ur Drug Screen Comment POC Glucose 07/10/18 07/09/18 06:45 21:49 POC Glucose 118 H 105 Discharge Diet: Low fat/ Low Cholesterol Discharge Activity: Return to Normal Activity Call your doctor if you observe: Shortness of breath, Dizziness, Fainting spells, Chest pain, Increased palpitations (irregular heartbeat) Home Medications: Medications to take at Discharge Albuterol Inhaler [Ventolin Hfa] 1 - 2 puff INHALATION Q4H PRN PRN 06/13/13 Fluticasone 0.05% [Flonase Nasal [place]] 2 spray NASAL DAILY 07/08/18 Losartan Potassium [Cozaar] 25 mg PO DAILY #30 tablet 07/10/18 Following Prescrptions Were Given to Patient: Losartan Potassium [Cozaar] 25 mg PO DAILY #30 tablet Other Amb Orders: 30-Day Event Recorder [[facility]] Location: None Selected Electrophysiology Location: None Selected Primary Care Physician: Care Physician,No Primary [Primary Care Provider] - Please follow up with your Primary Care Physician in: 1 Week Please Follow Up With: Hank Kendrick MD When: 4-6 Weeks, May see PROFESSOR OF LANGUAGES/PA Please Follow Up With: Dr. Castrejon - School Commissioner When: 1-2 Weeks Disposition: Home Minutes spent on discharge:: 35 Patient Condition:: Stable Medical Necessity - Tobacco Use Smoking Status: Former smoker Tobacco Use: Non-smoker Meaningful Use Info Meaningful Use Diagnoses (Choose all that apply): None applicable <Emmett Jj - Last Filed: 07/10/18 11:34> Discharge Date and Diagnosis - Secondary Discharge Diagnosis Chronic Problems (Last Updated 07/10/18 @ 10:33 by BUCK Herbert) History of left heart catheterization (Chronic 07/10/18) Normal coronaries per Dr. Kendrick @ [facility] 07/10/2018 WPW (Bmrww-Ceyxyacgp-Qmret syndrome) (Chronic) Nicotine abuse (Chronic) Obesity (Chronic) Anxiety (Chronic) Hospital Course and Treatment Summary of Care Provided: This patient was seen in conjunction with BUCK Herbert . I have independently interviewed and examined the patient and reviewed pertinent historical, laboratory, and other data. Please refer to BUCK Herbert note for details of this patient's presentation, findings, and recommendations. I have reviewed BUCK Herbert note and concur with documented findings. In brief, 33-year-old gentleman who presented with chest pain placed on a monitored bed IA was ruled out with serial cardiac enzymes subsequently underwent a nuclear stress test which came back positive for stress-induced ischemia consult subsequently placed to cardiology patient underwent left heart catheterization on 07/10/2018 which failed to demonstrate any hemodynamically significant obstructive lesions. Physical Examination: GENERAL: cooperative HEENT: Atraumatic; moist oral mucosa EYES; Anicteric, Normal Conjunctiva NECK; supple, normal thyroid, no distended JVD. RESPIRATORY: Diminished to auscultation bilaterally, NEURO: Awake; no lateralizing signs. SKIN: No Rash PSYCH; Normal affect Assessment: 1. Chest pain with positive stress test with a negative left heart catheterization on 07/10/2018 2. Suspected WPW: Patient be discharged home with an event monitor and a subsequent follow-up with EP physician 3. Mild intermittent asthma 4. Obesity with BMI of 36.1 5. Cannabis use 6. Anxiety disorder 7. DVT prophylaxis SC Lovenox - Physical Exam Vital Signs Temp Pulse Resp BP Pulse Ox 97.9 F 88 16 165/95 H 98 07/10/18 10:16 07/10/18 10:38 07/10/18 10:16 07/10/18 10:16 07/10/18 10:16 Oxygen Flow Rate (L/min) 2 Oxygen Delivery Method Room Air Weight: 120.656 kg Body Mass Index (BMI) 36.1 Intake and Output for Last 24 Hours 07/08/18 07/09/18 07/10/18 23:59 23:59 23:59 Intake Total 866 / 866 460 / 460 240 / 240 Balance 866 / 866 460 / 460 240 / 240 Laboratory Tests Past 24 Hrs 07/09/18 07/09/18 07/10/18 17:15 17:15 04:14 WBC 10.5 RBC 5.35 Hgb 15.0 Hct 44.8 MCV 83.7 MCH 28.0 MCHC 33.5 RDW 14.2 RDW Differential 43.1 Plt Count 249 MPV 10.9 PT INR APTT Sodium Potassium Chloride Carbon Dioxide Anion Gap BUN Creatinine Estim Creat Clear Calc Est GFR (MDRD) Af Amer Est GFR (MDRD) Non-Af BUN/Creatinine Ratio Glucose Calcium Urine Color Yellow Urine Clarity Clear Urine pH 6.5 Ur Specific Peerless 1.015 Urine Protein Negative Urine Glucose (UA) Normal Urine Ketones Negative Urine Occult Blood Negative Urine Nitrite Negative Urine Bilirubin Negative Urine Urobilinogen Normal Ur Leukocyte Esterase Negative Urine Opiates Screen NEGATIVE Urine Methadone Screen NEGATIVE Ur Barbiturates Screen NEGATIVE Ur Phencyclidine Scrn NEGATIVE Ur Amphetamines Screen NEGATIVE U Methamphetamin-MDMA NEGATIVE U Benzodiazepines Scrn NEGATIVE Urine Cocaine Screen NEGATIVE U Cannabinoids Screen POSITIVE H Ur Drug Screen Comment 07/10/18 07/10/18 04:14 04:14 WBC RBC Hgb Hct MCV MCH MCHC RDW RDW Differential Plt Count MPV PT 13.0 INR 1.0 APTT 28.4 Sodium 140 Potassium 4.5 Chloride 107 Carbon Dioxide 24.0 Anion Gap 9 BUN 19 H Creatinine 0.87 Estim Creat Clear Calc 130.08 Est GFR (MDRD) Af Amer 128 Est GFR (MDRD) Non-Af 106 BUN/Creatinine Ratio 21.9 H Glucose 113 H Calcium 8.8 Urine Color Urine Clarity Urine pH Ur Specific Peerless Urine Protein Urine Glucose (UA) Urine Ketones Urine Occult Blood Urine Nitrite Urine Bilirubin Urine Urobilinogen Ur Leukocyte Esterase Urine Opiates Screen Urine Methadone Screen Ur Barbiturates Screen Ur Phencyclidine Scrn Ur Amphetamines Screen U Methamphetamin-MDMA U Benzodiazepines Scrn Urine Cocaine Screen U Cannabinoids Screen Ur Drug Screen Comment POC Glucose 07/10/18 07/09/18 06:45 21:49 POC Glucose 118 H 105 Code Visit OBSV E&M: 39216 Observation care discharge
--- NOTE | 2018-07-10 12:23 | NURSING ---
pt ambulated in [place]. Heart cath site to rt groin c/d/i, no signs of bleeding or hematoma
== END 2018-07-10 10:32 | disposition home or self-care (01) ==
LOC: ED 16:44 → PCU 16:53
PROVIDERS: Internal Medicine Cardiovascular Disease; Nurse Practitioner Family; Admitting Provider Hospitalist; Emergency Provider Emergency Medicine; Visit Provider Internal Medicine
DX: R07.89 Other chest pain (principal); R06.02 Shortness of breath; I45.6 Pre-excitation syndrome; E66.9 Obesity, unspecified; Z68.36 Body mass index [BMI] 36.0-36.9, adult; Z71.3 Dietary counseling and surveillance; Z87.891 Personal history of nicotine dependence; F41.9 Anxiety disorder, unspecified; F12.10 Cannabis abuse, uncomplicated; R73.9 Hyperglycemia, unspecified; R03.0 Elevated blood-pressure reading, without diagnosis of hypertension; E78.5 Hyperlipidemia, unspecified; J45.20 Mild intermittent asthma, uncomplicated; R94.39 Abnormal result of other cardiovascular function study; I07.1 Rheumatic tricuspid insufficiency
CPT/HCPCS: 36415; 71045; 78452; 80048; 80061; 80307; 81002; 82962; 83036; 84443; 84484; 85025; 85027; 85379; 85610; 85730; 93005; 93017; 93306; 93458; 96360; 96361; 99152; 99218; 99285; A9500; J7030; Q9957; A4216; C1769; C1894; C8929; G0378; Q9967

== ENCOUNTER → 2018-07-10 13:15 | Outpatient (REF) | payer MEDICAID, SELFPAY ==
[2018-07-08 17:18] VITALS: BMI 36.1
== END ==
LOC: CVS 13:15
PROVIDERS: Referring Provider Nurse Practitioner Family; Visit Provider Nurse Practitioner Family
DX: I45.6 Pre-excitation syndrome (principal); R00.0 Tachycardia, unspecified
CPT/HCPCS: 93270

== ENCOUNTER 2022-12-17 12:22 | Emergency (ER) | payer OTHER, SELFPAY ==
[2022-12-17 12:23] VITALS: BP 208/115; PULSE 97; RESP 18; TEMP 36.3; O2SAT 97
--- NOTE | 2022-12-17 14:51 | ED.VIS.BACK ---
HPI History of Present Illness Chief Complaint: Back Informant: patient Onset/Context/Timing Onset: Month(s) Context: Gradual Onset Timing: Continuous Quality: Sharp Location: Lumbar, Buttock and Left Leg Worsened by: improves with Ambulation Relieved by: Nothing Associated Symptoms Associated Symptoms: Tingling and Radiation to Left Leg; Negative for Radiation to Right Leg, Fever, Abdominal Pain, Dysuria, Unable to Ambulate, Unable to Transfer, Urinary Retention, Urinary Incontinence, Constipation or Fecal Incontinence Narrative Narrative: Patient presents with low back pain that has been getting worse for the past few months. Patient states that it became worse today. Patient describes the pain as sharp. Patient states the pain is over the left lower lumbar area. Patient states it radiates down to his left leg. Patient admits to some numbness and tingling in his toes. Patient denies any weakness. Patient denies any bowel or bladder changes. Patient denies any saddle anesthesia. Patient denies any trauma or injury. Patient states he did have x-rays done at an outlying facility which showed some degenerative changes and retrolisthesis. [facility] Medical History (Updated 12/17/22 @ 14:[address] Zaid Witt, ) Asthma Chest pain Degenerative disc disease Hx of retropharyngeal abscess Hypertension Nicotine abuse WPW (Gwurk-Rzmjxvzsk-Xkriy syndrome) Home Medications albuterol sulfate 90 mcg/actuation aerosol inhaler 1 - 2 puff inhalation Q4H PRN PRN Shortness Of Breath 06/13/13 [History Last Taken 07/08/18] fluticasone propionate 50 mcg/actuation nasal spray,suspension 2 spray NASAL DAILY allergies 07/08/18 [History Last Taken 07/07/18] losartan 50 mg tablet 50 mg PO DAILY #30 tabs 08/07/18 [Rx Last Taken Unknown] hydrocodone-acetaminophen 5-325mg 5mg-325mg 1 tab PO Q6H PRN PRN Pain 3 days #10 TABLETS 12/17/22 [Rx Last Taken Unknown] Allergy/AdvReac Type Severity Reaction Status Date / Time morphine Allergy Hives Verified 12/17/22 12:25 mouse protein Allergy HIVES Verified 12/17/22 12:26 Family History Grandmother Diabetes Surgical History (Updated 12/17/22 @ 14:[address] Zaid Witt DO) History of herniorrhaphy History of left heart catheterization (07/10/18) Social History Smoking Status: Unknown if ever smoked ROS ROS ED Constitutional Constitutional ED: Denies chills or fever(s) Eyes Eyes: Denies blurry vision or change in vision ENT ENT ED: Denies rhinorrhea or sore throat Cardiovascular Cardiovascular: Denies chest pain or palpitations Respiratory/Chest Respiratory/Chest: Denies cough or dyspnea Gastrointestinal Gastrointestinal: Denies nausea or vomiting Genitourinary Genitourinary ED: Denies dysuria or hematuria Musculoskeletal Musculoskeletal: Reports back pain; Denies neck pain Integumentary Denies abscess or rash Neurologic Neurologic: Denies headache(s) or weakness Allergic/Immunologic Allergic/Immunologic ED: Denies mouth swelling or urticaria EXAM Physical Exam Const Vital Signs: 12/17/22 12:23 Temperature 97.3 F L Temperature Source Temporal Pulse Rate 97 Respiratory Rate 18 Blood Pressure 208/115 H Blood Pressure Mean 146 Pulse Ox 97 Oxygen Delivery Method Room Air Positive well nourished and well developed General Appearance ED: well developed and NAD HEENT Reports moist mucous membranes Back/Spine Back/Spine Narrative: There is tenderness over the left lumbar paraspinal muscles. There is mild spasm noted. There is no bony crepitance or step-off noted. Range of motion was limited in all motions of the lumbar spine secondary to pain. Straight leg raises were negative bilaterally. Strength is 5/5 bilaterally in the lower extremities. There are no sensory deficits noted. Deep tendon reflexes are 2/4 bilaterally in the lower extremities. Pedal pulses are equal bilaterally. Lumbar Spine / Lower Back: ROM limited and straight leg raise negative bilaterally Extremity normal to inspection General Extremety ED: Negative for edema or tenderness General Extremity: Negative for edema Neuro oriented x3 Sensorium / Orientation: alert Motor Exam: strength 5/5 throughout Deep Tendon Reflexes: Rt Patellar (L4): 2+, Lt Patellar (L4): 2+, Rt Ankle (S1): 2+ and Lt Ankle (S1): 2+ Deep Tendon Reflexes Back: Rt Patellar (L4): 2+, Lt Patellar (L4): 2+, Rt Ankle (S1): 2+ and Lt Ankle (S1): 2+ Psych mental status grossly normal MDM MDM MDM Narrative Medical decision making narrative: Patient was advised that this is most likely muscular strain. Patient was advised it could be sciatica as well. Patient was given a prescription for a short course of Amistad. Patient instructed use ice to the area. Patient was instructed to follow-up with his primary care physician in 5 to 7 days. Patient was instructed return if worse in any way. Patient understood and was agreeable with the plan. All questions were answered. Discharge Plan Triage Chief Complaint: Back ED Provider: Zaid Witt Dx/Rx/DC Orders Clinical Impression: Sciatica of left side Instructions: ED Sciatica Prescriptions: New hydrocodone-acetaminophen [hydrocodone-acetaminophen] 5-325 mg tablet 1 tab PO Q6H PRN PRN (Reason: Pain) 3 Days Qty: 10 0RF No Action losartan 50 mg tablet 50 mg PO DAILY Qty: 30 11RF albuterol sulfate 1 INHALER inhaler 1 - 2 puff inhalation Q4H PRN PRN (Reason: Shortness Of Breath) fluticasone propionate 1 SPRAY spray,suspension 2 spray NASAL DAILY Stand Alone Forms: ED Work / School Excuse Primary Care Provider: Blank Clement NP Referrals: Blank Clement NP, [employer] WORKER-C [Primary Care Provider] - 5-7 Days Disposition Disposition: Home, Self Care
[2022-12-17] MEDS: HYDROcodone Bitartrate/Apap 5/325 Tablet PO (15:04)
== END 2022-12-17 15:07 | disposition home or self-care (01) ==
PROVIDERS: Emergency Provider Emergency Medicine; PCP Nurse Practitioner Adult Health; Visit Provider Emergency Medicine
DX: M54.32 Sciatica, left side (principal)
CPT/HCPCS: 99282

== ENCOUNTER 2024-04-27 10:15 | Emergency (ER) | payer BC, MEDICAID, SELFPAY ==
[2024-04-27 10:15] VITALS: BP 175/98; PULSE 89; RESP 16; TEMP 36.1; O2SAT 96; BMI 43.9
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
--- NOTE | 2024-04-27 11:20 | RAD_ITS ---
PROCEDURE: WRIST MIN 3 VIEWS REASON FOR EXAM: Left wrist pain following injury. TECHNIQUE: Three views of the left wrist were obtained. COMPARISON: None. FINDINGS: LEFT WRIST: No visible fracture. No suspicious bone lesion. Normal alignment. Soft tissues are unremarkable. RAD/Wrist min 3 Views IMPRESSION: No acute abnormality is seen. Reading Location: [facility]
[2024-04-27 12:25] VITALS: BP 134/78; PULSE 64; RESP 16; TEMP 37.1; O2SAT 99
== END 2024-04-27 12:26 | disposition home or self-care (01) ==
PROVIDERS: Emergency Provider Emergency Medicine; Visit Provider Emergency Medicine
DX: S20.211A Contusion of right front wall of thorax, initial encounter (principal); S63.502A Unspecified sprain of left wrist, initial encounter; S13.4XXA Sprain of ligaments of cervical spine, initial encounter; V89.2XXA Person injured in unspecified motor-vehicle accident, traffic, initial encounter; I10 Essential (primary) hypertension; J45.909 Unspecified asthma, uncomplicated; Z79.899 Other long term (current) drug therapy
CPT/HCPCS: 71250; 72125; 73110; 99283

== ENCOUNTER → 2024-05-07 | Outpatient (CLI) | payer BC, MEDICAID, SELFPAY ==
[2024-05-07 10:23] LABS: Absolute Lymphocyte Count 2.63 X10^3/uL (0.83-4.51); Absolute Neutrophil Count 7.4 X10^3/uL (2.0-7.7); Basophil# 0.12 X10^3/uL; Basophil% 1.1 % (0-1); Eosinophil# 0.25 X10^3/uL; Eosinophils% 2.2 % (0-5); Hematocrit 49.1 % (40-54); Hemoglobin 16.2 g/dL (13.0-16.5); Lymphocyte # 2.63 X10^3/ul (0.83-4.51); Lymphocyte % 23.3 % (19-41); Mean Corpuscular Hgb 27.2 pg (27.0-32.0); Mean Corpuscular Volume 82.4 fL (80-94); Mean Platelet Vol. 11.2 fl (6.2-12.0); Monocyte# 0.74 X10^3/uL; Monocyte% 6.5 % (0-10); NRBC Flagged by Analyzer 0 % (0-5); Neutrophil # 7.42 X10^3/uL (2.7-7.7); Neutrophil % 65.6 % (47-70); Platelet Count 247 K/mm3 (150-450); RBC Distribution Width CV 14.5 % (11.6-14.6); Red Blood Count 5.96 M/mm3 (4.6-6.2); White Blood Count 11.3 K/mm3 (4.4-11.0)
[2024-05-07 10:42] LABS: Hemoglobin A1c 6.6 % (<=5.6)
[2024-05-07 11:09] LABS: ALB/GLOB Ratio 1.4 RATIO (0.9-2.4); AST(SGOT) 37 U/L (<=37); Alanine Aminotransfer ALT/SGPT 49 U/L (<=46); Albumin, Serum 4.4 g/dL (3.5-5.0); Alkaline Phosphatase 77 U/L (40-129); Anion Gap 14 (5-15); BUN 19 mg/dL (4-19); Calcium,Total 9.8 mg/dL (7.6-11.0); Carbon Dioxide 21.3 mmol/L (21.0-32.0); Chloride 104 mmol/L (98-108); Cholesterol 178 mg/dL (<=200); Creatinine, Serum 0.87 mg/dL (0.70-1.20); EST Glomerular Filtration Rate 111 (>60); Globulin 3.1 g/dL (2.2-4.2); Glucose 112 mg/dL (70-99); High Density Lipoprotein 39 mg/dL; Low Density Lipoprotein Calc. 99 mg/dL; Potassium 4.4 mmol/L (3.3-5.1); Protein, Total 7.6 g/dL (5.9-8.4); Sodium Level 139 mmol/L (133-145); Total Bilirubin 0.25 mg/dL (0.00-1.30); Triglycerides 199 mg/dL; Very Low Density Lipoprotein 40 mg/dL (5-40); cholesterol:hdl ratio screen 4.59
[2024-05-07 11:15] LABS: Erythrocyte Sedimentation Rate 9 mm/hr (0-20)
[2024-05-07 12:38] LABS: CRP 3.58 mg/L (0.0-3.0); PSA,Total - Annual Screen 0.74 ng/mL (0.02-4.00); Rheumatoid Factor < 10.0 IU/mL (<15)
[2024-05-08 14:08] LABS: CCP IgG Antibodies 1 units (0-19)
[2024-05-11 14:08] LABS: ANTINUCLEAR ANTIBODIES DIRECT Negative (Negative)
== END | disposition home or self-care (01) ==
PROVIDERS: PCP Nurse Practitioner Family; Referring Provider Nurse Practitioner Family; Visit Provider Nurse Practitioner Family
DX: Z00.01 Encounter for general adult medical examination with abnormal findings (principal); M25.50 Pain in unspecified joint; Z12.5 Encounter for screening for malignant neoplasm of prostate; Z80.8 Family history of malignant neoplasm of other organs or systems; R73.01 Impaired fasting glucose
CPT/HCPCS: 36415; 80053; 80061; 83036; 84153; 84439; 84443; 85025; 85652; 86038; 86140; 86200; 86431; G0103

== ENCOUNTER → 2024-12-17 | Outpatient (CLI) | payer OTHER, SELFPAY ==
--- NOTE | 2024-12-17 14:55 | RAD_ITS ---
PROCEDURE: ANKLE MIN 3 VIEWS; FOOT MIN 3 VIEWS 12/17/2024 REASON FOR EXAM: PAIN IN FOOT TECHNIQUE: Procedure Code: RADANK; RADFO Modality: DX Procedure: ANKLE MIN 3 VIEWS; FOOT MIN 3 VIEWS Laterality: Left COMPARISON: 12/17/2024. FINDINGS: No acute fracture or dislocation. A well corticated calcification immediately inferior to the medial malleolus likely represents either an accessory ossicle or an old ununited fracture. The ankle mortise is grossly intact. A small plantar calcaneal enthesophyte is present. No other significant bone or joint abnormality. No focal soft tissue swelling. Phleboliths are seen within the soft tissues anterior to the distal leg. RAD/Foot min 3 Views IMPRESSION: As above. Reading Location: [id number]
--- NOTE | 2024-12-17 14:55 | RAD_ITS ---
PROCEDURE: RIGHT FOOT MIN 3 VIEWS; ANKLE MIN 3 VIEWS 12/17/2024 REASON FOR EXAM: PAIN IN FOOT TECHNIQUE: Procedure Code: RADFO; RADANK Modality: DX Procedure: FOOT MIN 3 VIEWS; ANKLE MIN 3 VIEWS Laterality: Right COMPARISON: None. FINDINGS: No acute fracture or dislocation. Alignment is anatomic. Corticated osseous density at the tip of the medial malleolus likely an accessory ossicle or sequelae of remote injury. Preserved joint spaces. No aggressive osseous lesion. No marked soft tissue swelling or radiopaque foreign body. RAD/Foot min 3 Views IMPRESSION: No acute fracture or dislocation. Reading Location: [id number]
--- NOTE | 2024-12-17 14:55 | RAD_ITS ---
PROCEDURE: ANKLE MIN 3 VIEWS; FOOT MIN 3 VIEWS 12/17/2024 REASON FOR EXAM: PAIN IN FOOT TECHNIQUE: Procedure Code: RADANK; RADFO Modality: DX Procedure: ANKLE MIN 3 VIEWS; FOOT MIN 3 VIEWS Laterality: Left COMPARISON: 12/17/2024. FINDINGS: No acute fracture or dislocation. A well corticated calcification immediately inferior to the medial malleolus likely represents either an accessory ossicle or an old ununited fracture. The ankle mortise is grossly intact. A small plantar calcaneal enthesophyte is present. No other significant bone or joint abnormality. No focal soft tissue swelling. Phleboliths are seen within the soft tissues anterior to the distal leg. RAD/Ankle min 3 Views IMPRESSION: As above. Reading Location: [id number]
--- NOTE | 2024-12-17 14:55 | RAD_ITS ---
PROCEDURE: RIGHT FOOT MIN 3 VIEWS; ANKLE MIN 3 VIEWS 12/17/2024 REASON FOR EXAM: PAIN IN FOOT TECHNIQUE: Procedure Code: RADFO; RADANK Modality: DX Procedure: FOOT MIN 3 VIEWS; ANKLE MIN 3 VIEWS Laterality: Right COMPARISON: None. FINDINGS: No acute fracture or dislocation. Alignment is anatomic. Corticated osseous density at the tip of the medial malleolus likely an accessory ossicle or sequelae of remote injury. Preserved joint spaces. No aggressive osseous lesion. No marked soft tissue swelling or radiopaque foreign body. RAD/Ankle min 3 Views IMPRESSION: No acute fracture or dislocation. Reading Location: [id number]
[2024-12-17 15:30] LABS: Hematocrit 43.7 % (40-54); Hemoglobin 14.2 g/dL (13.0-16.5); Immature Granulocytes Count 0.160 X10^3/uL (0.0-0.0); Mean Corp Hgb Conc 32.5 g/dL (32-36); Mean Corpuscular Volume 87.6 fL (80-94); Mean Platelet Vol. 11.9 fl (6.2-12.0); NRBC Flagged by Analyzer 0 % (0-5); Platelet Count 215 K/mm3 (150-450); RBC Distribution Width CV 13.9 % (11.6-14.6); RBC Distribution Width SD 44.5 fl (35.1-43.9); Red Blood Count 4.99 M/mm3 (4.6-6.2); White Blood Count 9.6 K/mm3 (4.4-11.0)
[2024-12-17 16:23] LABS: CRP 4.79 mg/L (0.0-3.0); Cholesterol 163 mg/dL (<=200); Low Density Lipoprotein Calc. 95 mg/dL; Magnesium 2.0 mg/dL (1.5-2.2); Triglycerides 151 mg/dL; Very Low Density Lipoprotein 30 mg/dL (5-40); Vitamin D,25 Hydroxy 11.9 ng/mL (30-100); cholesterol:hdl ratio screen 3.92
[2024-12-17 16:38] LABS: AST(SGOT) 39 U/L (<=37); Alanine Aminotransfer ALT/SGPT 73 U/L (<=46); Albumin, Serum 4.3 g/dL (3.5-5.0); Alkaline Phosphatase 72 U/L (40-129); Anion Gap 9 (5-15); BUN 20 mg/dL (4-19); BUN/Creat Ratio 27.9 RATIO (10-20); Calcium,Total 9.2 mg/dL (7.6-11.0); Carbon Dioxide 23.6 mmol/L (21.0-32.0); Chloride 105 mmol/L (98-108); Globulin 2.8 g/dL (2.2-4.2); Glucose 123 mg/dL (70-99); Potassium 4.8 mmol/L (3.3-5.1)
== END | disposition home or self-care (01) ==
LOC: LAB 14:42
PROVIDERS: PCP Nurse Practitioner Family; Referring Provider Nurse Practitioner Family; Visit Provider Nurse Practitioner Family
DX: Z00.01 Encounter for general adult medical examination with abnormal findings (principal); M79.671 Pain in right foot; M79.672 Pain in left foot; M25.50 Pain in unspecified joint; R53.83 Other fatigue
CPT/HCPCS: 36415; 73610; 73630; 80053; 80061; 82306; 83036; 83735; 85025; 85652; 86140